=== PATIENT | female | born 1955 | race African-American/Black ===

== ENCOUNTER 2016-07-15 11:36 | Emergency (ER) | payer OTHER ==
[2016-07-15] MEDS ORDERED: Nitroglycerin 2% Ointment 1 INCH/1 GM Packet ONE (12:00)
[2016-07-15 12:19] LABS: #Basophils 0.1 thou/uL (0.0-0.2); #Eosinphils 0.3 thou/uL (0.0-0.7); #Monocytes 0.6 thou/uL (0.11-0.59); #Neutrophils 2.8 thou/uL (1.40-6.50); %Eosinophils 5.7 % (0.0-10.0); %Monocytes 10.1 % (0.0-10.0); Hematocrit 36.2 % (36.0-47.0); Mean Platelet Volume 7.2 fL (7.4-10.4); Red Blood Cell (RBC) Count 3.79 mill/uL (4.20-5.40); White Blood Cell (WBC) Count 5.8 thou/uL (4.8-10.8)
[2016-07-15] MEDS ORDERED: methylPREDNISolone Sod Succ/PF 125 MG/2 ML VIAL ONE (12:35)
[2016-07-15 12:37] LABS: ALT (SGPT) Less than 6 U/L (0-55); AST (SGOT) 13 U/L (5-34); Alkaline Phosphatase 62 U/L (40-150); Anion Gap 12 mmol/L (10-20); BUN (Urea Nitrogen) 15 mg/dL (9.8-20.1); Bilirubin, Total 0.3 mg/dL (0.2-1.2); Calc. Creatinine Clearance 0 mL/min (70-130); Calcium 10.1 mg/dL (7.8-10.44); Carbon Dioxide 20 mmol/L (22-29); Chloride 111 mmol/L (98-107); Estimated GFR-MDRD 48; Globulin 2.6 g/dL (2.4-3.5); Protein, Total 6.4 g/dL (6.0-8.3)
[2016-07-15 12:40] LABS: Troponin I 0.025 ng/mL (< 0.028)
[2016-07-15] MEDS ORDERED: cefTRIAXone\\ROCEPHIN 1 GM VIAL ONE (12:54)
[2016-07-15] MEDS ORDERED: Acetaminophen 500 MG TAB ONE (13:04)
[2016-07-15] MEDS ORDERED: Magnesium Sulfate 2 GM/100 ML BAG ONE (13:33)
--- NOTE | 2016-07-15 14:10 | ERRECORD ---
[facility] EMERGENCY RECORD HPI SHORTNESS OF BREATH (11:57 JPIP) CHIEF COMPLAINT: Patient presents for evaluation of shortness of breath, Patient presents for evaluation of chest pain. HISTORIAN: History provided by patient. LOCATION: Symptoms are generalized. QUALITY: Symptoms described as tightness, Symptoms described as wheezing. SEVERITY: Current severity of pain rated as 9/10. TIME COURSE: Sudden onset of symptoms, Date and time of onset was "awhile", Symptoms are worsening, are constant. ASSOCIATED WITH: Associated with chills, Associated with cough, Associated with chest pain, No associated diarrhea, Associated with dyspnea on exertion, Associated with fever, Measured maximum temperature 102-102.9 degrees, No associated hemoptysis, Associated with increased inhaler use, Associated with palpitations, Associated with paroxysmal nocturnal dyspnea, No associated peripheral edema, Associated with upper respiratory infection, No associated vomiting, Associated with wheezing. EXACERBATED BY: Patient's condition exacerbated by exercise, Patient's condition exacerbated by lying flat. RELIEVED BY: Patient's condition relieved by nothing. RISK FACTORS: Coronary artery disease risk factors, include known coronary artery disease, include hypertension. ROS (11:58 JPIP) CONSTITUTIONAL: Historian reports chills, reports fever. measured temperature of 102, Historian reports malaise. ENT: Historian reports rhinorrhea. CARDIOVASCULAR: Historian reports chest pain, reports dyspnea on exertion, reports orthopnea, reports paroxysmal nocturnal dyspnea. RESPIRATORY: Historian reports cough, reports shortness of breath, reports wheezing. GI: Historian denies diarrhea, reports nausea, denies vomiting. SKIN: Historian denies rash, denies skin changes, denies skin lesions. NEUROLOGIC: Historian denies confusion, denies dizziness, denies lethargy, denies mental status changes, denies paresthesias. NOTES: All systems reviewed, negative except as described above. PAST MEDICAL HISTORY MEDICAL HISTORY: Past medical history includes cardiac history, coronary artery disease, congestive heart failure, arrhythmia, atrial fibrillation, , Past medical history includes history of hyperlipidemia, Notes: FIBROMYALGIA, , Past medical &a-1R&a+25V*p+0X*y1326H*c202B*c15G*c2P*p-0X&a-25V&a+1R Name: Heide Lake Alverto : 1955 F61 MedRec: [id number] AcctNum: [id number] Prepared: Deana Jul 15, 2016 14:08 by Interface Page 1 of 4 pMD [facility] EMERGENCY RECORD history includes cardiac history, carotid plaques, "VALVE LEAK", Past medical history includes history of hypertension, Past medical history includes neurological disease, ischemic cerebral vascular accident 08/2014, Past medical history includes pulmonary disease, chronic obstructive pulmonary disease, Past medical history includes renal disease, insufficiency. Past medical history includes neurological disease, transient ischemic attack. PA 08/2014 and pneumonia- September 2015. Stroke in January. (11:41 KMOR) FEMALE SURGICAL HISTORY: CAROTID ENDARTERECTOMY TO LEFT SIDE., Surgical history of cholecystectomy, Surgical history of tubal ligation. LEEP Surgery, heart cath 2014. (11:41 KMOR) PSYCHIATRIC HISTORY: Psychiatric history includes, bipolar disorder, depression, schizophrenia. (11:41 KMOR) SOCIAL HISTORY: Patient denies alcohol use, Patient denies drug use, Patient currently uses tobacco, smokes cigarettes, Patient smokes 2 per day pack per day. (11:41 KMOR) NOTES: Nursing records reviewed, Medication list reviewed. (12:01 [facility]) KNOWN ALLERGIES Ziac: Source: Patient, - TONGUE SWELLING CURRENT MEDICATIONS No recorded medications VITAL SIGNS VITAL SIGNS: Pulse: 96, Time: 07/15/2016 11:38. (11:38 KMOR) BP: 185/120, Resp: 26, Temp: 97.7 (Oral), Pain: 9, O2 sat: 99 on Room Air, Time: 07/15/2016 11:39. (11:39 KMOR) BP: 168/97, Pulse: 84, Resp: 20, Pain: 9, O2 sat: 98 on Room Air, Time: 07/15/2016 12:15. (12:15 KMOR) BP: 166/105, Pulse: 82, Resp: 16, O2 sat: 98 on 2L Oxygen, Time: 07/15/2016 13:07. (13:07 AHOO) BP: 185/117, Pulse: 81, Resp: 14, Temp: 98.2 (Oral), Pain: 8, O2 sat: 99 on 2L Oxygen, Time: 07/15/2016 13:42. (13:42 AHOO) BP: 175/102, Pulse: 81, Resp: 14, O2 sat: 99 on 2L Oxygen, Time: 07/15/2016 14:00. (14:00 KMOR) PHYSICAL EXAM (11:59 JPIP) CONSTITUTIONAL: Vital Signs Reviewed, Patient afebrile, Pulse normal, Blood pressure, hypertensive, Respiratory rate, increased, Normal pulse oximetry, Patient appears, ill appearing, Patient appears, in mild pain distress, Patient alert and oriented to person, place and time, Nursing notes reviewed. HEAD: Head exam included findings of head atraumatic, normocephalic. EYES: Eye exam included findings of eyelids normal to inspection, Conjunctiva normal, Sclera normal, no periorbital ecchymosis, no periorbital edema, no periorbital erythema. &a-1R&a+25V*p+0X*b3170C*c202B*c15G*c2P*p-0X&a-25V&a+1R Name: Heide Lake : 1955 F61 MedRec: [id number] AcctNum: [id number] Prepared: ThuJul 15, 2016 14:08 by Interface Page 2 of 4 pMD [facility] EMERGENCY RECORD ENT: Pharynx exam normal, not injected, no swelling, symmetrical, Uvula exam normal, midline, no edema, Mouth exam included findings of, mucous membranes tacky. NECK: Neck exam included findings of normal range of motion, Trachea midline, no jugular venous distention, no cervical adenopathy, no tenderness. RESPIRATORY CHEST: Respiratory exam included findings of, moderate respiratory distress, Breath sounds not clear, No wheezing, Rales present, to bilateral upper lobes, to bilateral lower lobes, Breath sounds diminished, to bilateral upper lobes, to bilateral lower lobes. CARDIOVASCULAR: Cardiovascular exam included findings of heart rate regular rate and rhythm, Heart sounds normal, no rub. ABDOMEN FEMALE: Abdominal exam included findings of abdomen nontender, Liver normal, Spleen normal, no distension, no mass, no pulsatile masses, no peritoneal signs, no rigidity, no guarding, no rebound. BACK: no costovertebral angle tenderness. LOWER EXTREMITY: no edema. NEURO: Waterflow coma scale 15, Neuro exam findings include patient oriented to person, place and time, Speech, forced, short 1-2 word sentences, no focal motor deficits. SKIN: Skin exam included findings of skin warm, dry, and normal in color. LYMPHATIC: Lymphatic exam included findings of cervical nodes normal, Submandibular normal. PSYCHIATRIC: Normal affect. MEDICATION ADMINISTRATION SUMMARY Drug Name: magnesium sulfate in water, Dose Ordered: 2 g, Route: IV Piggy Back, Status: Given, Time: 13:39 07/15/2016, Drug Name: Tylenol Extra Strength, Dose Ordered: 1000 mg, Route: Oral, Status: Given, Time: 13:06 07/15/2016, Drug Name: Rocephin injection, Dose Ordered: 2 g, Route: IV Piggy Back, Status: Given, Time: 13:02 07/15/2016, Drug Name: Solu-MEDROL injection, Dose Ordered: 125 mg, Route: IV Push, Status: Given, Time: 12:38 07/15/2016, Drug Name: Normal Saline, Dose Ordered: 100 mL/hr, Route: IV Fluid Infusion, Status: Given, Time: 12:08 07/15/2016, Drug Name: DuoNeb, Dose Ordered: 3 mL, Route: Nebulize, Status: Given, Time: 12:02 07/15/2016, Drug Name: Nitro-Bid transdermal, Dose Ordered: 1 inch, Route: Topical, Status: Given, Time: 12:00 07/15/2016, Detailed record available in Medication Service section. DOCTOR NOTES (12:23 JPIP) RE-EVALUATION: Routine re-evaluation, after administration of bronchodilator nebulizer treatments, Routine re-evaluation, after &a-1R&a+25V*p+0X*e5046B*c202B*c15G*c2P*p-0X&a-25V&a+1R Name: Heide Lake Alverto : 1955 F61 MedRec: [id number] AcctNum: [id number] Prepared: ThuJul 15, 2016 14:08 by Interface Page 3 of 4 pMD [facility] EMERGENCY RECORD administration of, nitroglycerin paste, The patient's condition has improved, able to speak full sentences, markedly decreased distress. Talking on her phone. PROBLEM LIST No recorded problems DIAGNOSIS (13:45 JPIP) FINAL: PRIMARY: COPD WITH ACUTE EXACERBATION, ADDITIONAL: uncontrolled hypertension. PRESCRIPTION No recorded prescriptions DISPOSITION PATIENT: Disposition Type: Transfer, Disposition: Transfer to [facility], Disposition Transport: Ambulance, Condition: Improved. (13:45 JPIP) Patient left the department. (14:02 KMOR) Dailey: AHOO=JIGNA Cha, September JPIP=DO [place] Joseph KMOR=CALLY Marinelli, Oriana &a-1R&a+25V*p+0X*s7402F*c202B*c15G*c2P*p-0X&a-25V&a+1R Name: Heide Lake : 1955 F61 MedRec: [id number] AcctNum: [id number] Prepared: Deana Jul 15, 2016 14:08 by Interface Page 4 of 4 pMD MTDD
--- NOTE | 2016-07-15 14:10 | PICIS ---
[facility] EMERGENCY RECORD COMMUNICATIONS (13:44 JPIP) COMMUNICATIONS: Physician, contacted/paged at [phone], Reason for notification transfer and admission, Dr Mcdonough accepts. TRIAGE (ThuJul 15, 2016 11:38 KMOR) TRIAGE NOTES: increased sob, cough and fever or a few days. (ThuJul 15, 2016 11:38 KMOR) PATIENT: NAME: Heide Lake, AGE: 61, GENDER: female, : Sat 1955, TIME OF GREET: ThuJul 15, 2016 11:37, PREFERRED LANGUAGE: Barbadian, ETHNICITY: Not or , ECODE BILLING MAP: [place], SSN: [id number], Zip Code: [address], KG WEIGHT: 68.04, PHONE: , , , PERSON ID: [id number], PAYMENT: X Medicaid, PCP: Vivian SANCHEZ. (ThuJul 15, 2016 11:38 KMOR) COMPLAINT: Shortness of Breath. (11:43 KMOR) ADMISSION: URGENCY: 3 Urgent, ADMISSION SOURCE: Home, TRANSPORT: CAR, BED: ER -02. (ThuJul 15, 2016 11:38 KMOR) ASSESSMENT: Assessment: A&OX4. RR EVEN TACHY, Symptoms began 3 days ago. (11:41 KMOR) PAIN: Patient complains of pain described as, aching, on a scale 0-10 patient rates pain as 9, Location CHEST. (11:41 KMOR) IMMUNIZATIONS: Flu vaccine up to date, Tetanus immunization up to date, Pneumococcal vaccine up to date. (11:41 KMOR) SIRS SCORING: Heart Rate 55-109 (0), Temp range 96.8-101.1 (0), respiratory rate 12-24 (0), Mental Status altered: no (0), Yes, Infection or Suspected Infection. (11:41 KMOR) TRIAGE SCREENING: Patient denies suicidal ideation, Patient denies presence of domestic violence. (11:41 KMOR) LMP: LMP: Hysterectomy. (11:41 KMOR) PROVIDERS: TRIAGE NURSE: Oriana Marinelli RN. (ThuJul 15, 2016 11:38 KMOR) VITAL SIGNS: Pulse 96, Time 07/15/2016 11:38. (11:38 KMOR) BP 185/120, Resp 26, Temp 97.7, (Oral), Pain 9, O2 Sat 99, on Room Air, Time 07/15/2016 11:39. (11:39 KMOR) PREVIOUS VISIT ALLERGIES: Ziac. (ThuJul 15, 2016 11:38 KMOR) Ziac. (11:41 KMOR) KNOWN ALLERGIES Ziac: Source: Patient, - TONGUE SWELLING CURRENT MEDICATIONS No recorded medications VITAL SIGNS VITAL SIGNS: Pulse: 96, Time: 07/15/2016 11:38. (11:38 KMOR) BP: 185/120, Resp: 26, Temp: 97.7 (Oral), Pain: 9, O2 sat: 99 on Room Air, Time: 07/15/2016 11:39. (11:39 KMOR) BP: 168/97, Pulse: 84, Resp: 20, Pain: 9, O2 sat: 98 on Room Air, Time: 07/15/2016 12:15. (12:15 KMOR) &a-1R&a+25V*p+0X*w5861D*c202B*c15G*c2P*p-0X&a-25V&a+1R Name: Heide Lake : 1955 F61 MedRec: [id number] AcctNum: [id number] Prepared: ThuJul 15, 2016 14:08 by Interface Page 1 of 14 pMD [facility] EMERGENCY RECORD BP: 166/105, Pulse: 82, Resp: 16, O2 sat: 98 on 2L Oxygen, Time: 07/15/2016 13:07. (13:07 AHOO) BP: 185/117, Pulse: 81, Resp: 14, Temp: 98.2 (Oral), Pain: 8, O2 sat: 99 on 2L Oxygen, Time: 07/15/2016 13:42. (13:42 AHOO) BP: 175/102, Pulse: 81, Resp: 14, O2 sat: 99 on 2L Oxygen, Time: 07/15/2016 14:00. (14:00 KMOR) NURSING ASSESSMENT: CARDIOVASCULAR (12:29 KMOR) CONSTITUTIONAL: Patient arrives ambulatory, Gait steady, History obtained from patient, Patient appears, in respiratory distress, Patient cooperative, Patient alert, Oriented to person, place and time, Skin warm, Skin dry, Skin normal in color, Mucous membranes pink, Mucous membranes, tacky, Patient is well-groomed, Patient complains of Shortness of breath, Patient reports increased shortness of breath, cough and congestion x 3 days. Reports possible fever. PAIN: aching pain, to the left chest, on a scale 0-10 patient rates pain as 9, Pain exacerbated by, coughing. CARDIOVASCULAR: Cardiovascular assessment findings include heart rate normal, Heart rhythm normal sinus, Heart sounds normal, S1, S2, Left radial pulse +3(easily palpated, considered normal), Right radial pulse +3(easily palpated, considered normal), Associated with dyspnea, with exertion, when lying flat (orthopnea). RESPIRATORY/CHEST: Lungs auscultated, Breath sounds diminished, to bilateral upper lobes, to bilateral lower lobes, Respiratory assessment findings include respiratory effort, labored, rapid, Respirations regular, Converses, in short phrases, Neck and chest exam findings include trachea midline, Chest expansion equal, Chest movement symmetrical, Signs of distress, tripod positioning, in moderate distress, Retractions, intercostal, sternal, Associated with cough, loose, productive of, green sputum, Associated with fever. NOTES: Patient tolerated procedure well. NURSING ASSESSMENT: FALL RISK (12:31 KMOR) FALL RISK: Fall risk assessment findings include: no history of falls (0), No bed rest greater than 2 days (0), No use of level of consciousness altering agents with mentation or cognitive changes (0), No change in blood pressure (0), No sensory deficits (0), No impaired mobility (0), No neurologic diagnosis (0), No elimination problems (0), No confusion (0), Total score 0. NURSING ASSESSMENT: SKIN (12:31 KMOR) SKIN: Skin assessment findings include skin warm, Skin dry, Skin normal in color, Inspection findings include: No pressure ulcer to the shoulder, Inspection findings include no pressure ulcer to the &a-1R&a+25V*p+0X*j3143L*c202B*c15G*c2P*p-0X&a-25V&a+1R Name: Heide Lake : 1955 F61 MedRec: [id number] AcctNum: [id number] Prepared: ThuJul 15, 2016 14:08 by Interface Page 2 of 14 pMD [facility] EMERGENCY RECORD elbow, Inspection findings include no pressure ulcers to the hip, Inspection findings include no pressure ulcer to the sacrum, Inspection findings include no pressure ulcer to the heel, Inspection findings include no pressure ulcer, Inspection findings include no pressure ulcer. JAE SCALE: (4) Sensory perception has no impairment, (3) Skin is occasionally moist, (3) Patient walks occasionally, (3) Slightly limited mobility, (3) Adequate nutrition, (3) Patient has no apparent problem moving, Jae Risk Total: 19. NURSING PROCEDURE: REFRIGERATION INSULATOR (12:00 KMOR) PATIENT IDENTIFIER: Patient actively involved in identification process, Patient's identity verified by patient stating name, Patient's identity verified by patient stating date. REFRIGERATION INSULATOR: Cardiac monitoring indicated for complaint of chest pain, Patient placed on head of mathematics, Heart rate: 84, showing normal sinus rhythm, Patient placed on non-invasive blood pressure monitor, with disposable blood pressure cuff applied, Patient placed on continuous pulse oximetry, Adult/pediatric oxisensor applied, Oxygen saturation 99%. NOTES: Patient tolerated procedure well. NURSING PROCEDURE: EKG CHART (11:45 AHOO) PATIENT IDENTIFIER: Patient actively involved in identification process, Patient's identity verified by patient stating name, Patient's identity verified by patient stating date, Patient's identity verified by hospital ID bracelet. EKG: EKG indicated for WEAKNESS, 12 lead EKG performed on the left chest, done by BABITA BLEDSOE LVN, first EKG. FOLLOW-UP: After procedure, EKG for interpretation given to Dr. DR LAGOS. NURSING PROCEDURE: IV (12:00 KMOR) PATIENT IDENITIFIER: Patient actively involved in identification process, Patient's identity verified by patient stating name, Patient's identity verified by patient stating date. IV SITE 1: IV therapy indicated for hydration, IV therapy indicated for medication administration, IV established, to the left antecubital, using an 18 gauge catheter, in one attempt, Saline lock established, Flushed with normal saline (mls): 10, Labs drawn at time of placement, labeled in the presence of the patient and sent to lab, Blood cultures drawn at time of placement, labeled in the presence of the patient and sent to lab. FOLLOW-UP SITE 1: After procedure, sterile dressing applied, After procedure, no drainage at IV site, After procedure, no swelling at IV site, After procedure, no redness at IV site. NOTES: Patient tolerated procedure well. NURSING PROCEDURE: RESPIRATORY INTERVENTIONS (12:05 AHOO) &a-1R&a+25V*p+0X*o0488E*c202B*c15G*c2P*p-0X&a-25V&a+1R Name: Heide Lake : 1955 F61 MedRec: [id number] AcctNum: [id number] Prepared: Deana Jul 15, 2016 14:08 by Interface Page 3 of 14 D [facility] EMERGENCY RECORD PATIENT IDENTIFIER: Patient actively involved in identification process, Patient's identity verified by patient stating name, Patient's identity verified by patient stating date, Patient's identity verified by hospital ID bracelet. RESPIRATORY INTERVENTIONS: Respiratory interventions indicated for wheezing, Pre-intervention oxygen saturation 99%, by adult/pediatric oxisensor, single pulse oximetry reading, GAVE PT DUO NEB TX PER MD ORDERS. NURSING PROCEDURE: TRANSFER TRANSFER: Reason for transfer need for specialized care, Diagnosis: COPD EXACERBATION, [facility], Accepting physician: SNEHA, Referring physician: JES, Transported by urgent ambulance, accompanied by emergency medical services personnel, Summary of Care printed, Copy of patient record prepared for receiving facility, Copy of diagnostic studies, Status of patient's valuables documented on chart, Medication reconciliation form prepared and sent to receiving facility, Patient consent for transfer signed. (13:58 KMOR) BELONGINGS: Notes: BELONGINGS BAG AND CANE TRANSFERED WITH PATIENT TO [place]. (14:01 KMOR) EQUIPMENT WITH PATIENT: Equipment with patient at time of transfer head of mathematics, Equipment with patient at time of transfer IV pump, Saline lock intact and patent at time of transfer. (14:02 KMOR) ORDER DETAILS Order Name: B type Natriuretic Peptide, Status: Active, Time: 11:50 07/15/2016, User: SUMIT, - Ordered for: DO Lagos Joseph, - Entered by: DO Lagos Joseph - ThuJul 15, 2016 11:50, - Quantity: 1, Order Name: REFRIGERATION INSULATOR ED, Status: Done, Time: 11:55 07/15/2016, User: KB, - Ordered for: DO Lagos Joseph, - Entered by: DO Lagos Joseph - ThuJul 15, 2016 11:50, - Quantity: 1, Order Name: Cardiac Profile w/CKMB & Troponin - I, Status: Active, Time: 11:50 07/15/2016, User: SUMIT, - Ordered for: DO Lagos Joseph, - Entered by: DO Lagos Joseph - ThuJul 15, 2016 11:50, - Quantity: 1, Order Name: CBC with Differential, Status: Active, Time: 11:50 07/15/2016, User: SUMIT, - Ordered for: DO Lagos Joseph, - Entered by: DO Lagos Joseph - ThuJul 15, 2016 11:50, - Quantity: 1, Order Name: Comprehensive Metabolic Panel, Status: Active, Time: 11:50 07/15/2016, User: SUMIT, &a-1R&a+25V*p+0X*p8097M*c202B*c15G*c2P*p-0X&a-25V&a+1R Name: Heide Lake : 1955 F61 MedRec: [id number] AcctNum: [id number] Prepared: ThuJul 15, 2016 14:08 by Interface Page 4 of 14 D [facility] EMERGENCY RECORD - Ordered for: DO Lagos Joseph, - Entered by: DO Lagos Joseph - ThuJul 15, 2016 11:50, - Quantity: 1, Order Name: Culture & GS, Respiratory, Status: Active, Time: 12:18 07/15/2016, User: SUMIT, - Ordered for: DO Lagos Joseph, - Entered by: DO Lagos Joseph - ThuJul 15, 2016 12:18, - Quantity: 1, Order Name: Culture, Blood, Status: Active, Time: 11:50 07/15/2016, User: SUMIT, - Ordered for: DO Lagos Joseph, - Entered by: DO Lagos Joseph - ThuJul 15, 2016 11:50, - Quantity: 1, Order Name: Culture, Urine, Status: Active, Time: 11:50 07/15/2016, User: SUMIT, - Ordered for: DO Lagos Joseph, - Entered by: DO Lagos Joseph - theo Jul 15, 2016 11:50, - Quantity: 1, Order Name: EKG 12 Lead in Emergency Room, Status: Active, Time: 11:50 07/15/2016, User: SUMIT, - Ordered for: DO Lagos Joseph, - Entered by: DO Lagos Joseph - theo Jul 15, 2016 11:50, - Quantity: 1, Order Name: ERRT * Smal Vol Neb Initial Trmt, Status: Active, Time: 11:55 07/15/2016, User: SUMIT, - Ordered for: DO Lagos Joseph, - Entered by: DO Lagos Joseph - theo Jul 15, 2016 11:55, - Quantity: 1, Order Name: ERRT Oxygen Usage ER, Status: Active, Time: 11:50 07/15/2016, User: SUMIT, - Ordered for: DO Lagos Joseph, - Entered by: DO Lagos Joseph ThuJul 15, 2016 11:50, - Quantity: 1, Order Name: ERRT Pulse Oximeter ER, Status: Active, Time: 11:50 07/15/2016, User: SUMIT, - Ordered for: DO Lagos Joseph, - Entered by: DO Lagos Joseph - ThuJul 15, 2016 11:50, - Quantity: 1, Order Name: Influenza A&B Ag Screen, Status: Active, Time: 11:50 07/15/2016, User: SUMIT, - Ordered for: DO Lagos Joseph, - Entered by: DO Lagos Joseph - theo Jul 15, 2016 11:50, - Quantity: 1, Order Name: Lactic Acid with repeat, Status: Active, Time: 11:52 07/15/2016, User: SUMIT, - Ordered for: DO Lagos Joseph, - Entered by: DO Lagos Joseph - theo Jul 15, 2016 11:52, - Quantity: 1, Order Name: SALINE LOCK, Status: Done, Time: 12:23 07/15/2016, User: ROSENDO, &a-1R&a+25V*p+0X*p7198S*c202B*c15G*c2P*p-0X&a-25V&a+1R Name: Heide Lake : 1955 F61 MedRec: [id number] AcctNum: [id number] Prepared: ThuJul 15, 2016 14:08 by Interface Page 5 of 14 pMD [facility] EMERGENCY RECORD - Ordered for: DO Lagos Joseph, - Entered by: DO Lagos Joseph - ThuJul 15, 2016 11:50, - Quantity: 1, Order Name: Urinalysis w/ Rflx Microscopic, Status: Active, Time: 11:50 07/15/2016, User: SUMIT, - Ordered for: DO Lagos Joseph, - Entered by: DO Lagos Joseph - theo Jul 15, 2016 11:50, - Quantity: 1, Order Name: XR Chest 1 View Portable, Status: Active, Time: 11:56 07/15/2016, User: SUMIT, - Ordered for: DO Lagos Joseph, - Entered by: DO Lagos Joseph - theo Jul 15, 2016 11:56, - Quantity: 1. MEDICATION ADMINISTRATION SUMMARY Drug Name: magnesium sulfate in water, Dose Ordered: 2 g, Route: IV Piggy Back, Status: Given, Time: 13:39 07/15/2016, Drug Name: Tylenol Extra Strength, Dose Ordered: 1000 mg, Route: Oral, Status: Given, Time: 13:06 07/15/2016, Drug Name: Rocephin injection, Dose Ordered: 2 g, Route: IV Piggy Back, Status: Given, Time: 13:02 07/15/2016, Drug Name: Solu-MEDROL injection, Dose Ordered: 125 mg, Route: IV Push, Status: Given, Time: 12:38 07/15/2016, Drug Name: Normal Saline, Dose Ordered: 100 mL/hr, Route: IV Fluid Infusion, Status: Given, Time: 12:08 07/15/2016, Drug Name: DuoNeb, Dose Ordered: 3 mL, Route: Nebulize, Status: Given, Time: 12:02 07/15/2016, Drug Name: Nitro-Bid transdermal, Dose Ordered: 1 inch, Route: Topical, Status: Given, Time: 12:00 07/15/2016, Detailed record available in Medication Service section. MEDICATION SERVICE DuoNeb: Order: DuoNeb (ipratropium bromide/albuterol sulfate) - Dose: 3 mL : Nebulize Schedule: Now Ordered by: Stanley Lagos DO Entered by: Stanley Lagos DO ThuJul 15, 2016 11:55 , Acknowledged by: Baibta Bledsoe LVN ThuJul 15, 2016 11:57 Documented as given by: Babita Bledsoe LVN ThuJul 15, 2016 12:02 Patient, Medication, Dose, Route and Time verified prior to administration. Amount given: 3 ML, Correct patient, time, route, dose and medication confirmed prior to administration, Patient advised of actions and side-effects prior to administration, Allergies confirmed and medications reviewed prior to administration, Patient in position of comfort, Side rails up, Cart in lowest position, Family at bedside. magnesium sulfate in water: Order: magnesium sulfate in water (magnesium sulfate/water for injection,sterile) - Dose: 2 g &a-1R&a+25V*p+0X*u4725B*c202B*c15G*c2P*p-0X&a-25V&a+1R Name: Heide Lake : 1955 F61 MedRec: [id number] AcctNum: [id number] Prepared: ThuJul 15, 2016 14:08 by Interface Page 6 of 14 pMD [facility] EMERGENCY RECORD : IV Piggy Back Schedule: Now Ordered by: Stanley Lagos DO Entered by: Stanley Lagos DO ThuJul 15, 2016 13:29 , Acknowledged by: Oriana Marinelli RN ThuJul 15, 2016 13:30 Documented as given by: Babita Bledsoe LVN ThuJul 15, 2016 13:39 Patient, Medication, Dose, Route and Time verified prior to administration. Amount given: 2G, IV SITE #1 IVPB or drip, concurrent infusion, Catheter placement confirmed via flush prior to administration, IV site without signs or symptoms of infiltration during medication administration, No swelling during administration, No drainage during administration, IV flushed after administration, Correct patient, time, route, dose and medication confirmed prior to administration, Patient advised of actions and side-effects prior to administration, Allergies confirmed and medications reviewed prior to administration, Patient in position of comfort, Side rails up, Cart in lowest position, Family at bedside. : Follow Up : Response assessment performed, No signs or symptoms of allergic reaction noted, _IV SITE #1:_, Medication infusion continued upon transfer from emergency department, on ThuJul 15, 2016 14:02, 25 minutes, ., Total amount infused: 40ML. (14:02 KMOR) Nitro-Bid transdermal: Order: Nitro-Bid transdermal (nitroglycerin) - Dose: 1 inch : Topical Schedule: Now Ordered by: Stanley Lagos DO Entered by: Stanley Lagos DO ThuJul 15, 2016 11:51 , Acknowledged by: Babita Bledsoe LVN ThuJul 15, 2016 11:57 Documented as given by: Babita Bledsoe LVN theo Jul 15, 2016 12:00 Patient, Medication, Dose, Route and Time verified prior to administration. Medication applied transdermally topically, Amount given: 1 INCH, Skin cleansed prior to administration, Correct patient, time, route, dose and medication confirmed prior to administration, Patient advised of actions and side-effects prior to administration, Allergies confirmed and medications reviewed prior to administration, PT BP WAS 183/107. Normal Saline: Order: Normal Saline (0.9 % sodium chloride) - Dose: 100 mL/hr : IV Fluid Infusion Ordered by: Stanley Lagos DO Entered by: Stanley Lagos DO ThuJul 15, 2016 11:51 Documented as given by: Babita Bledsoe LVN theo Jul 15, 2016 12:08 Patient, Medication, Dose, Route and Time verified prior to administration. Amount given: 100ML/HR, IV SITE #1 IV fluids established for hydration, IV SITE #1 into left antecubital, IV SITE #1 1st bag hung, IV SITE #1 Rate of infusion (non-bolus) Infusing at 100 ml/hr, via primary tubing, Awake and alert- acceptable, Catheter placement confirmed via flush prior to administration, IV site without signs or &a-1R&a+25V*p+0X*b3015U*c202B*c15G*c2P*p-0X&a-25V&a+1R Name: Heide Lake : 1955 F61 MedRec: [id number] AcctNum: [id number] Prepared: ThuJul 15, 2016 14:08 by Interface Page 7 of 14 pMD [facility] EMERGENCY RECORD symptoms of infiltration during medication administration, No swelling during administration, No drainage during administration, IV flushed after administration, Correct patient, time, route, dose and medication confirmed prior to administration, Patient advised of actions and side-effects prior to administration, Allergies confirmed and medications reviewed prior to administration, Patient in position of comfort, Side rails up, Cart in lowest position, Family at bedside. Rocephin injection: Order: Rocephin injection (ceftriaxone sodium) - Dose: 2 g : IV Piggy Back Schedule: Now Ordered by: Stanley Lagos DO Entered by: Stanley Lagos DO ThuJul 15, 2016 12:47 , Acknowledged by: Babita Bledsoe LVN ThuJul 15, 2016 12:49 Documented as given by: Babita Bledsoe LVN ThuJul 15, 2016 13:02 Patient, Medication, Dose, Route and Time verified prior to administration. Amount given: 2 GRAMS, IV SITE #1 IVPB or drip, initial infusion, Verified Blood Culture collection prior to Antibiotic administration, Catheter placement confirmed via flush prior to administration, IV site without signs or symptoms of infiltration during medication administration, No swelling during administration, No drainage during administration, IV flushed after administration, Correct patient, time, route, dose and medication confirmed prior to administration, Patient advised of actions and side-effects prior to administration, Allergies confirmed and medications reviewed prior to administration, Patient in position of comfort, Side rails up, Cart in lowest position, Family at bedside. : Follow Up : Response assessment performed, No signs or symptoms of allergic reaction noted, _IV SITE #1:_, Medication infusion discontinued, on ThuJul 15, 2016 13:33, 35 minutes, ., Total amount infused: 200ML, IV Line flushed after administration. (13:33 OO) Solu-MEDROL injection: Order: Solu-MEDROL injection (methylprednisolone sod succ) - Dose: 125 mg : IV Push Ordered by: Stanley Lagos DO Entered by: Stanley Lagos DO ThuJul 15, 2016 12:29 , Acknowledged by: Babita Bledsoe LVN ThuJul 15, 2016 12:30 Documented as given by: Babita Bledsoe LVN ThuJul 15, 2016 12:38 Patient, Medication, Dose, Route and Time verified prior to administration. Amount given: 125MG, IV SITE #1 IVP, initial medication, Slowly, Awake and alert- acceptable, Catheter placement confirmed via flush prior to administration, IV site without signs or symptoms of infiltration during medication administration, No swelling during administration, No drainage during administration, IV flushed after administration, Correct patient, time, route, dose and medication confirmed prior to administration, Patient advised of actions and side-effects prior to administration, Allergies confirmed and medications reviewed prior to administration, Patient in position of &a-1R&a+25V*p+0X*r5125J*c202B*c15G*c2P*p-0X&a-25V&a+1R Name: Hiede Lake : 1955 F61 MedRec: [id number] AcctNum: [id number] Prepared: ThuJul 15, 2016 14:08 by Interface Page 8 of 14 pMD [facility] EMERGENCY RECORD comfort, Side rails up, Cart in lowest position, Family at bedside. Tylenol Extra Strength: Order: Tylenol Extra Strength (acetaminophen) - Dose: 1000 mg : Oral Schedule: Now Ordered by: Stanley Lagos DO Entered by: Stanley Lagos DO ThuJul 15, 2016 13:00 , Acknowledged by: Babita Bledsoe LVN theo Jul 15, 2016 13:03 Documented as given by: Babita Bledsoe LVN theo Jul 15, 2016 13:06 Patient, Medication, Dose, Route and Time verified prior to administration. Amount given: 1000MG, Correct patient, time, route, dose and medication confirmed prior to administration, Patient advised of actions and side-effects prior to administration, Allergies confirmed and medications reviewed prior to administration, Patient in position of comfort, Side rails up, Cart in lowest position, Family at bedside. HPI SHORTNESS OF BREATH (11:57 JPIP) CHIEF COMPLAINT: Patient presents for evaluation of shortness of breath, Patient presents for evaluation of chest pain. HISTORIAN: History provided by patient. LOCATION: Symptoms are generalized. QUALITY: Symptoms described as tightness, Symptoms described as wheezing. SEVERITY: Current severity of pain rated as 9/10. TIME COURSE: Sudden onset of symptoms, Date and time of onset was "awhile", Symptoms are worsening, are constant. ASSOCIATED WITH: Associated with chills, Associated with cough, Associated with chest pain, No associated diarrhea, Associated with dyspnea on exertion, Associated with fever, Measured maximum temperature 102-102.9 degrees, No associated hemoptysis, Associated with increased inhaler use, Associated with palpitations, Associated with paroxysmal nocturnal dyspnea, No associated peripheral edema, Associated with upper respiratory infection, No associated vomiting, Associated with wheezing. EXACERBATED BY: Patient's condition exacerbated by exercise, Patient's condition exacerbated by lying flat. RELIEVED BY: Patient's condition relieved by nothing. RISK FACTORS: Coronary artery disease risk factors, include known coronary artery disease, include hypertension. ROS (11:58 JPIP) CONSTITUTIONAL: Historian reports chills, reports fever. measured temperature of 102, Historian reports malaise. ENT: Historian reports rhinorrhea. CARDIOVASCULAR: Historian reports chest pain, &a-1R&a+25V*p+0X*e9348O*c202B*c15G*c2P*p-0X&a-25V&a+1R Name: Heide Lake : 1955 F61 MedRec: [id number] AcctNum: [id number] Prepared: ThuJul 15, 2016 14:08 by Interface Page 9 of 14 pMD [facility] EMERGENCY RECORD reports dyspnea on exertion, reports orthopnea, reports paroxysmal nocturnal dyspnea. RESPIRATORY: Historian reports cough, reports shortness of breath, reports wheezing. GI: Historian denies diarrhea, reports nausea, denies vomiting. SKIN: Historian denies rash, denies skin changes, denies skin lesions. NEUROLOGIC: Historian denies confusion, denies dizziness, denies lethargy, denies mental status changes, denies paresthesias. NOTES: All systems reviewed, negative except as described above. PAST MEDICAL HISTORY MEDICAL HISTORY: Past medical history includes cardiac history, coronary artery disease, congestive heart failure, arrhythmia, atrial fibrillation, , Past medical history includes history of hyperlipidemia, Notes: FIBROMYALGIA, , Past medical history includes cardiac history, carotid plaques, "VALVE LEAK", Past medical history includes history of hypertension, Past medical history includes neurological disease, ischemic cerebral vascular accident 08/2014, Past medical history includes pulmonary disease, chronic obstructive pulmonary disease, Past medical history includes renal disease, insufficiency. Past medical history includes neurological disease, transient ischemic attack. ID 08/2014 and pneumonia- September 2015. Stroke in January. (11:41 KMOR) FEMALE SURGICAL HISTORY: CAROTID ENDARTERECTOMY TO LEFT SIDE., Surgical history of cholecystectomy, Surgical history of tubal ligation. LEEP Surgery, heart cath 2014. (11:41 KMOR) PSYCHIATRIC HISTORY: Psychiatric history includes, bipolar disorder, depression, schizophrenia. (11:41 KMOR) SOCIAL HISTORY: Patient denies alcohol use, Patient denies drug use, Patient currently uses tobacco, smokes cigarettes, Patient smokes 2 per day pack per day. (11:41 KMOR) NOTES: Nursing records reviewed, Medication list reviewed. (12:01 JPIP) PHYSICAL EXAM (11:59 JPIP) CONSTITUTIONAL: Vital Signs Reviewed, Patient afebrile, Pulse normal, Blood pressure, hypertensive, Respiratory rate, increased, Normal pulse oximetry, Patient appears, ill appearing, Patient appears, in mild pain distress, Patient alert and oriented to person, place and time, Nursing notes reviewed. HEAD: Head exam included findings of head atraumatic, normocephalic. EYES: Eye exam included findings of eyelids normal to inspection, Conjunctiva normal, Sclera normal, no periorbital ecchymosis, no periorbital edema, no periorbital erythema. ENT: Pharynx exam normal, not injected, no swelling, symmetrical, Uvula exam normal, midline, no edema, Mouth exam included findings &a-1R&a+25V*p+0X*a1802G*c202B*c15G*c2P*p-0X&a-25V&a+1R Name: Heide Lake : 1955 F61 MedRec: [id number] AcctNum: [id number] Prepared: ThuJul 15, 2016 14:08 by Interface Page 10 of 14 pMD [facility] EMERGENCY RECORD of, mucous membranes tacky. NECK: Neck exam included findings of normal range of motion, Trachea midline, no jugular venous distention, no cervical adenopathy, no tenderness. RESPIRATORY CHEST: Respiratory exam included findings of, moderate respiratory distress, Breath sounds not clear, No wheezing, Rales present, to bilateral upper lobes, to bilateral lower lobes, Breath sounds diminished, to bilateral upper lobes, to bilateral lower lobes. CARDIOVASCULAR: Cardiovascular exam included findings of heart rate regular rate and rhythm, Heart sounds normal, no rub. ABDOMEN FEMALE: Abdominal exam included findings of abdomen nontender, Liver normal, Spleen normal, no distension, no mass, no pulsatile masses, no peritoneal signs, no rigidity, no guarding, no rebound. BACK: no costovertebral angle tenderness. LOWER EXTREMITY: no edema. NEURO: [place] coma scale 15, Neuro exam findings include patient oriented to person, place and time, Speech, forced, short 1-2 word sentences, no focal motor deficits. SKIN: Skin exam included findings of skin warm, dry, and normal in color. LYMPHATIC: Lymphatic exam included findings of cervical nodes normal, Submandibular normal. PSYCHIATRIC: Normal affect. LAB INTERPRETATION (13:06 JPIP) INTERPRETATION: I reviewed the lab results, All labs normal except as noted below, CBC abnormal, Hemoglobin decreased, Hematocrit decreased, Chemistry abnormal, Chloride elevated, Bicarbonate decreased, Cardiac enzymes abnormal, CK-MB normal, Troponin normal, BNP elevated, 141, Liver functions normal, Lactate normal. EVENTS TRANSFER: Triage to Emergency Emergency Room -02. (ThuJul 15, 2016 11:38 KMOR) Removed from Emergency Emergency Room -02. (14:02 KMOR) O2SAT INTERPRETATION (11:50 JPIP) O2SAT: Continuous pulse oximetry, Oxygen saturation 99%, on room air, Oxygen saturation interpretation: Normal, No intervention required. DOCTOR NOTES (12:23 JPIP) RE-EVALUATION: Routine re-evaluation, after administration of bronchodilator nebulizer treatments, Routine re-evaluation, after administration of, nitroglycerin paste, The patient's condition has &a-1R&a+25V*p+0X*u4052E*c202B*c15G*c2P*p-0X&a-25V&a+1R Name: Heide Lake : 1955 F61 MedRec: [id number] AcctNum: [id number] Prepared: ThuJul 15, 2016 14:08 by Interface Page 11 of 14 pMD [facility] EMERGENCY RECORD improved, able to speak full sentences, markedly decreased distress. Talking on her phone. PROBLEM LIST No recorded problems DIAGNOSIS (13:45 JPIP) FINAL: PRIMARY: COPD WITH ACUTE EXACERBATION, ADDITIONAL: uncontrolled hypertension. DISPOSITION PATIENT: Disposition Type: Transfer, Disposition: Transfer to [facility], Disposition Transport: Ambulance, Condition: Improved. (13:45 JPIP) Patient left the department. (14:02 KMOR) PRESCRIPTION No recorded prescriptions IMAGING (12:46 KMOR) *EKG: Image captured from scanner. RESULTS LABORATORY: CBC with Differential Collection DT: ThuJul 15, 2016 12:08, White Blood Cell (WBC) Count 5.8 thou/uL, Range (4.8-10.8), *Red Blood Cell (RBC) Count 3.79 - L mill/uL, Range (4.20-5.40), *Hemoglobin 11.9 - L g/dL, Range (12.0-16.0), Hematocrit 36.2 %, Range (36.0-47.0), Mean Corpuscular Volume 95.4 fl, Range (81.0-99.0), *Mean Corpuscular Hemoglobin 31.3 - H pg, Range (27.0-31.0), Mean Corpuscular HGB CONC 32.8 g/dL, Range (32.0-36.0), RBC Distribution Width 12.9 %, Range (11.5-14.5), Platelet Count 212 thou/uL, Range (130-400), *Mean Platelet Volume 7.2 - L fL, Range (7.4-10.4), %Neutrophils 48.0 %, Range (42.0-75.0), %Lymphocytes 34.3 %, Range (21.0-51.0), *%Monocytes 10.1 - H %, Range (0.0-10.0), %Eosinophils 5.7 %, Range (0.0-10.0), *%Basophils 2.0 - H %, Range (0.0-1.0), #Neutrophils 2.8 thou/uL, Range (1.40-6.50), #Lymphocytes 2.0 thou/uL, Range (1.20-3.40), *#Monocytes 0.6 - H thou/uL, Range (0.11-0.59), #Eosinphils 0.3 thou/uL, Range (0.0-0.7), #Basophils 0.1 thou/uL, Range (0.0-0.2). (12:24 JPIP) Lactic Acid for Sepsis Collection DT: ThuJul 15, 2016 12:08, Lactic Acid - Sepsis 1.0 mmol/L, Range (0.5-2.2). (12:39 JPIP) Comprehensive Metabolic Panel Collection DT: ThuJul 15, 2016 12:08, Sodium 139 mmol/L, Range (136-145), &a-1R&a+25V*p+0X*v2257P*c202B*c15G*c2P*p-0X&a-25V&a+1R Name: Heide Lake : 1955 F61 MedRec: [id number] AcctNum: [id number] Prepared: ThuJul 15, 2016 14:08 by Interface Page 12 of 14 pMD [facility] EM[facility]Y RECORD Potassium 4.2 mmol/L, Range (3.5-5.1), *Chloride 111 - H mmol/L, Range (98-107), *Carbon Dioxide 20 - L mmol/L, Range (22-29), Anion Gap 12 mmol/L, Range (10-20), BUN (Urea Nitrogen) 15 mg/dL, Range (9.8-20.1), *Creatinine 1.36 - H mg/dL, Range (0.6-1.1), Estimated GFR-MDRD 48 , Reference Range for Estimated GFR: Greater than 90, mL/min/1.73 m2 NOTE: The MDRD equation has not been validated for use, with the elderly (over 70 years of age), women, patients with, serious comorbid condition or persons with extremes of body size, muscle, mass, or nutritional status. , Glucose 100 mg/dL, Range (70-105), Calcium 10.1 mg/dL, Range (7.8-10.44), Bilirubin, Total 0.3 mg/dL, Range (0.2-1.2), Protein, Total 6.4 g/dL, Range (6.0-8.3), NOTE: Plasma values are generally 0.3 to 0.5 g/dL higher than serum values, due to the presence of fibrinogen. , Albumin 3.8 g/dL, Range (3.5-5.0), Globulin 2.6 g/dL, Range (2.4-3.5), Alb/Glob Ratio 1.5 g/dL, Range (1.2-2.2), Alkaline Phosphatase 62 U/L, Range (40-150), AST (SGOT) 13 U/L, Range (5-34), ALT (SGPT) Less than 6 U/L, Range (0-55). (12:41 JPIP) Cardiac Profile w/CKMB & TropI Collection DT: ThuJul 15, 2016 12:08, CKMB 1.3 ng/mL, Range (0-6.6), Troponin I 0.025 ng/mL, Range (< 0.028), Reference Range , 0.00 - 0.028 ng/mL Negative 0.029 - 0.29 ng/mL , Indeterminate Greater or Equal to 0.3 ng/mL Strongly suggests ID , . (12:41 JP) B type Natriuretic Peptide Collection DT: ThuJul 15, 2016 12:08, *B type Natriuretic Peptide 141.4 - H pg/mL, Range (0-100). (12:46 JPIP) MICROBIOLOGY: Influenza A&B Ag Screen: [id number] Collection DT: ThuJul 15, 2016 12:08, See comment below , @ ER ROOM#: [id number] Source: Nasal swab Spec Desc: , Influenza A Antigen: NEGATIVE for the , presence of , INFLUENZA A Antigen , Influenza B Antigen: NEGATIVE for the , presence of , INFLUENZA B Antigen , The rapid Flu A&B test can distinguish between influenza A , &a-1R&a+25V*p+0X*j2550O*c202B*c15G*c2P*p-0X&a-25V&a+1R Name: Jesenia Lakekristen Del Toro : 1955 F61 MedRec: [id number] AcctNum: [id number] Prepared: ThuJul 15, 2016 14:08 by Interface Page 13 14 pMD [facility] EM[facility]GENCY RECORD Influenza A&B Ag Screen See comment below , and B viruses, but it does not differentiate influenza , Influenza A&B Ag Screen See comment below , subtypes. , Influenza A&B Ag Screen See comment below , Influenza A&B Ag Screen See comment below , Influenza A&B Ag Screen See comment below , Influenza A&B Ag Screen See comment below , characteristics of this device with human specimens infected , Influenza A&B Ag Screen See comment below , with the 2008 H1N1 influenza virus have not been , Influenza A&B Ag Screen See comment below , established. For example: this test cannot distinguish , Influenza A&B Ag Screen See comment below , influenza infections caused by novel H1N1 influenza A , Influenza A&B Ag Screen See comment below , viruses versus seasonal influenza A viruses. , Influenza A&B Ag Screen See comment below , , Influenza A&B Ag Screen See comment below , A negative result does not exclude influenza virus , Influenza A&B Ag Screen See comment below , infection; therefore, if more conclusive testing is desired, , Influenza A&B Ag Screen See comment below , follow up confirmatory testing is warranted., Influenza A&B Ag Screen See comment below . (13:07 JPIP) Dailey: AHOO=JIGNA Bledsoe, September JPIP=DO [place] Joseph KMOR=CALLY Marinelli, Oriana &a-1R&a+25V*p+0X*s8198N*c202B*c15G*c2P*p-0X&a-25V&a+1R Name: Heide Lake : 1955 F61 MedRec: [id number] AcctNum: [id number] Prepared: ThuJul 15, 2016 14:08 by Interface Page 14 14 pMD [facility]
--- NOTE | 2016-07-15 21:36 | RAD ---
PORTABLE CHEST 07/15/16 An AP portable film at 1208 is compared with a 03/11/16 study. The heart is normal in size and the lungs are clear. No infiltrate or effusion was seen. The trachea is midline and the mediastinum was unremarkable in appearance. Faint calcification is seen in the a ortic arch. IMPRESSION: No acute finding. POS: HOME
== END 2016-07-15 14:02 | disposition short-term general hospital (02) ==
LOC: BURERS 11:36
DX: J44.1 Chronic obstructive pulmonary disease with (acute) exacerbation (principal); I11.0 Hypertensive heart disease with heart failure; I50.9 Heart failure, unspecified; I25.10 Atherosclerotic heart disease of native coronary artery without angina pectoris; I48.91 Unspecified atrial fibrillation; E78.5 Hyperlipidemia, unspecified; I25.2 Old myocardial infarction; F31.9 Bipolar disorder, unspecified; F20.9 Schizophrenia, unspecified; F17.210 Nicotine dependence, cigarettes, uncomplicated; Z86.73 Personal history of transient ischemic attack (TIA), and cerebral infarction without residual deficits
CPT/HCPCS: 71010; 80053; 82553; 83605; 83880; 84484; 85025; 87040; 87070; 87149; 87205; 93005; 94640; 94760; 96361; 96365; 96367; 96375; J0696; J2930; J3475; J7620

== ENCOUNTER 2016-08-27 14:23 | Outpatient (CLI) | payer OTHER ==
[2016-08-27 14:43] LABS: #Basophils 0.1 thou/uL (0.0-0.2); #Eosinphils 0.1 thou/uL (0.0-0.7); #Lymphocytes 2.7 thou/uL (1.20-3.40); #Monocytes 0.5 thou/uL (0.11-0.59); #Neutrophils 4.8 thou/uL (1.40-6.50); %Basophils 1.4 % (0.0-1.0); %Eosinophils 1.1 % (0.0-10.0); %Lymphocytes 32.6 % (21.0-51.0); %Monocytes 6.2 % (0.0-10.0); %Neutrophils 58.7 % (42.0-75.0); Hemoglobin 12.2 g/dL (12.0-16.0); Mean Corpuscular Hemoglobin 30.5 pg (27.0-31.0); Mean Corpuscular Volume 95.2 fl (81.0-99.0); Mean Platelet Volume 6.4 fL (7.4-10.4); Platelet Count 264 thou/uL (130-400); RBC Distribution Width 13.3 % (11.5-14.5); Red Blood Cell (RBC) Count 3.99 mill/uL (4.20-5.40); White Blood Cell (WBC) Count 8.1 thou/uL (4.8-10.8)
[2016-08-27 14:58] LABS: ALT (SGPT) 8 U/L (0-55); AST (SGOT) 14 U/L (5-34); Albumin 4.3 g/dL (3.5-5.0); Alkaline Phosphatase 57 U/L (40-150); Anion Gap 11 mmol/L (10-20); BUN (Urea Nitrogen) 16 mg/dL (9.8-20.1); Bilirubin, Total 0.4 mg/dL (0.2-1.2); Calc. Creatinine Clearance 0 mL/min (70-130); Carbon Dioxide 22 mmol/L (22-29); Cardiac Risk 4.7 (Less than 4.5); Chloride 112 mmol/L (98-107); Cholesterol 232 mg/dL (< 200 Desired); Estimated GFR-MDRD 48; Globulin 2.7 g/dL (2.4-3.5); Glucose 89 mg/dL (70-105); HDL Cholesterol 49 mg/dL (>60 Neg Risk); LDL Cholesterol, Calculated 171 mg/dL; Potassium 4.2 mmol/L (3.5-5.1); Sodium 141 mmol/L (136-145); Triglycerides 61 mg/dL (Less than 150)
== END 2016-08-27 14:24 | disposition home or self-care (01) ==
LOC: HPCALD 14:23
PROVIDERS: ATTEND Physician Assistant
DX: I10 Essential (primary) hypertension (principal)
CPT/HCPCS: 36415; 80053; 80061; 84443; 85025

== ENCOUNTER 2017-01-26 14:08 | Outpatient (CLI) | payer OTHER ==
[2017-01-26 15:55] LABS: ALT (SGPT) 8 U/L (8-55); AST (SGOT) 16 U/L (5-34); Albumin 4.5 g/dL (3.5-5.0); Alkaline Phosphatase 66 U/L (40-150); Anion Gap 12 mmol/L (10-20); BUN (Urea Nitrogen) 21 mg/dL (9.8-20.1); Bilirubin, Total 0.3 mg/dL (0.2-1.2); Calc. Creatinine Clearance 0 mL/min (70-130); Calcium 11.2 mg/dL (7.8-10.44); Carbon Dioxide 27 mmol/L (22-29); Chloride 107 mmol/L (98-107); Estimated GFR-MDRD 43; Globulin 3.5 g/dL (2.4-3.5); Glucose 99 mg/dL (70-105); Potassium 4.4 mmol/L (3.5-5.1); Sodium 142 mmol/L (136-145)
[2017-01-27 18:05] LABS: HBSAg Index 0.21 S/CO (0-0.99); Hep A IgM AB Non-Reactive (NonReactive); Hep A IgM S/CO 0.53 S/CO (0-0.79); Hep B Surf Ag Non-Reactive S/CO (NonReactive); Hep C IgG Ab Non-Reactive (NonReactive); Hep C Index 0.57 S/CO (0-0.79)
[2017-01-27 18:37] LABS: Hep B Core Total Index 9.39 S/CO (0-0.79)
[2017-01-27 18:38] LABS: HBSAB Concentration 5392.65 mIU/mL; Hep B Core Total Ab Reactive (NonReactive); Hep B Surf AB Reactive (NonReactive)
[2017-01-28 15:56] LABS: HIV (1/2) Antibody/Antigen Non-Reactive (NonReactive); HIV 1/2 INDEX 0.14 S/CO (<1.00)
== END 2017-01-26 14:09 | disposition home or self-care (01) ==
LOC: BURLAB 14:08
PROVIDERS: ATTEND Family Medicine
DX: N28.9 Disorder of kidney and ureter, unspecified (principal); Z20.5 Contact with and (suspected) exposure to viral hepatitis
CPT/HCPCS: 36415; 80053; 86592; 86704; 86706; 86709; 86803; 87340; 87389

== ENCOUNTER 2017-02-13 12:18 | Outpatient (CLI) | payer OTHER ==
[2017-02-13 13:04] LABS: #Basophils 0.1 thou/uL (0.0-0.2); #Eosinphils 0.2 thou/uL (0.0-0.7); #Lymphocytes 2.8 thou/uL (1.20-3.40); #Monocytes 0.6 thou/uL (0.11-0.59); #Neutrophils 3.8 thou/uL (1.40-6.50); %Basophils 1.7 % (0.0-1.0); %Eosinophils 2.4 % (0.0-10.0); %Lymphocytes 36.7 % (21.0-51.0); %Monocytes 8.3 % (0.0-10.0); %Neutrophils 50.9 % (42.0-75.0); Hemoglobin 13.8 g/dL (12.0-16.0); Mean Corpuscular Hemoglobin 31.9 pg (27.0-31.0); Mean Corpuscular Volume 99.6 fl (81.0-99.0); Mean Platelet Volume 6.6 fL (7.4-10.4); Platelet Count 252 thou/uL (130-400); RBC Distribution Width 13.3 % (11.5-14.5); Red Blood Cell (RBC) Count 4.34 mill/uL (4.20-5.40); White Blood Cell (WBC) Count 7.5 thou/uL (4.8-10.8)
[2017-02-13 13:16] LABS: Calcium 10.8 mg/dL (7.8-10.44); Cardiac Risk 4.3 (Less than 4.5)
[2017-02-17 05:14] LABS: Ionized Calcium 5.6 mg/dL (4.5-5.6)
== END 2017-02-13 12:19 | disposition home or self-care (01) ==
LOC: BURLAB 12:18
PROVIDERS: ATTEND Family Medicine
DX: Z00.00 Encounter for general adult medical examination without abnormal findings (principal); Z20.6 Contact with and (suspected) exposure to human immunodeficiency virus [HIV]; Z20.5 Contact with and (suspected) exposure to viral hepatitis; E78.00 Pure hypercholesterolemia, unspecified; E83.52 Hypercalcemia
CPT/HCPCS: 36415; 80061; 82310; 82330; 83970; 84443; 85025

== ENCOUNTER 2017-05-06 11:55 | Emergency (ER) | payer OTHER ==
[2017-05-06] MEDS ORDERED: Adacel (T-DAP) 0.5 ML VIAL ONE (12:21)
[2017-05-06] MEDS ORDERED: Bacitracin Zinc 1 Packet ONE (12:37)
== END 2017-05-06 12:46 | disposition critical access hospital (66) ==
LOC: BURERS 11:55
DX: S71.112A Laceration without foreign body, left thigh, initial encounter (principal); I25.10 Atherosclerotic heart disease of native coronary artery without angina pectoris; I48.91 Unspecified atrial fibrillation; E78.5 Hyperlipidemia, unspecified; J44.9 Chronic obstructive pulmonary disease, unspecified; I11.0 Hypertensive heart disease with heart failure; I50.9 Heart failure, unspecified; I25.2 Old myocardial infarction; F31.9 Bipolar disorder, unspecified; F20.9 Schizophrenia, unspecified; F17.210 Nicotine dependence, cigarettes, uncomplicated; Z86.73 Personal history of transient ischemic attack (TIA), and cerebral infarction without residual deficits; W54.0XXA Bitten by dog, initial encounter
CPT/HCPCS: 90471; 90715

== ENCOUNTER 2017-05-11 15:06 | Emergency (ER) | payer OTHER ==
[2017-05-11] MEDS ORDERED: Ketorolac Tromethamine 30 MG/ML VIAL ONE (15:32)
[2017-05-11 15:59] LABS: Band 4 % (5-11); Hemoglobin 12.5 g/dL (12.0-16.0); Lymphocytes 8 % (21-51); MDiff Complete? YES; Mean Corpuscular HGB CONC 32.4 g/dL (32.0-36.0); Mean Corpuscular Hemoglobin 31.3 pg (27.0-31.0); Mean Corpuscular Volume 96.6 fl (81.0-99.0); Mean Platelet Volume 6.8 fL (7.4-10.4); Monocytes 12 % (0-10); Neutrophil 76 % (42-75); Platelet Count 238 thou/uL (130-400); RBC Distribution Width 12.9 % (11.5-14.5); Red Blood Cell (RBC) Count 3.99 mill/uL (4.20-5.40); White Blood Cell (WBC) Count 6.8 thou/uL (4.8-10.8)
[2017-05-11 16:00] LABS: ALT (SGPT) 8 U/L (8-55); AST (SGOT) 15 U/L (5-34); Alkaline Phosphatase 66 U/L (40-150); Anion Gap 14 mmol/L (10-20); BUN (Urea Nitrogen) 13 mg/dL (9.8-20.1); Bilirubin, Total 0.4 mg/dL (0.2-1.2); Calc. Creatinine Clearance 0 mL/min (70-130); Calcium 10.4 mg/dL (7.8-10.44); Carbon Dioxide 20 mmol/L (22-29); Chloride 106 mmol/L (98-107); Estimated GFR-MDRD 48; Globulin 3.2 g/dL (2.4-3.5); Glucose 96 mg/dL (70-105); Potassium 4.2 mmol/L (3.5-5.1); Protein, Total 7.2 g/dL (6.0-8.3); Sodium 136 mmol/L (136-145)
[2017-05-11 16:02] LABS: Bilirubin Negative (Negative); Blood, Urine Small (Negative); Clarity Clear (Clear); Glucose, Urine (Dipstick) Negative (Negative); Leukocyte Negative (Negative); Nitrite Negative (Negative); Protein, Urine (Dipstick) 30 mg/dL (Neg-Trace)
[2017-05-11 16:02] LABS: CKMB 0.5 ng/mL (0-6.6); Troponin I 0.022 ng/mL (< 0.028)
[2017-05-11] MEDS ORDERED: Benzonatate 100 MG CAP ONE (16:11)
[2017-05-11 16:19] LABS: Bacteria/HPF Rare-Few HPF (None Seen); Crystals/HPF None Seen HPF (Negative); Hyaline Casts/LPF NONE SEEN LPF (0-3 Hyaline); Other Casts/LPF None Seen LPF (0-3 Hyaline); Oval Fat Bodies/HPF None Seen HPF (None Seen); RBC/HPF 0-3 HPF (0-3); Renal Epithelial None Seen HPF (0-3); Sperm/HPF None Seen HPF (None Seen); Squamous Epithelial None Seen HPF (0-3); Transitional Epithelial NONE SEEN HPF (0-3); Trichomonas/HPF None Seen HPF (None Seen); WBC/HPF 0-3 HPF (0-3); Yeast-All Forms None Seen HPF (None Seen)
[2017-05-11] MEDS ORDERED: Acetaminophen 325 MG TAB ONE (17:13)
--- NOTE | 2017-05-11 17:16 | RAD ---
CHEST TWO VIEWS: Date: 05-11-17 Comparison: 03-13-17 FINDINGS: The heart is normal in size and the lungs are clear. There are no convincing findings of pneumonia at the moment. Some of the lung markings behind the heart are perhaps a little course, but not necessar flavio different than older films. Faint calcification is seen in the aortic arch as usual. The mediasti num appears normal. IMPRESSION: No definite acute findings at this time. Consider follow up study if symptoms do not natalie. POS: HOME
== END 2017-05-11 17:25 | disposition home or self-care (01) ==
LOC: BURERS 15:06
DX: J06.9 Acute upper respiratory infection, unspecified (principal); I25.10 Atherosclerotic heart disease of native coronary artery without angina pectoris; I48.91 Unspecified atrial fibrillation; E78.5 Hyperlipidemia, unspecified; I25.2 Old myocardial infarction; J44.9 Chronic obstructive pulmonary disease, unspecified; F31.9 Bipolar disorder, unspecified; F20.9 Schizophrenia, unspecified; F17.210 Nicotine dependence, cigarettes, uncomplicated; I11.0 Hypertensive heart disease with heart failure; I50.9 Heart failure, unspecified; Z86.73 Personal history of transient ischemic attack (TIA), and cerebral infarction without residual deficits
CPT/HCPCS: 71020; 80053; 81003; 81015; 82553; 84484; 85025; 93005; 96365; J1885

== ENCOUNTER 2017-07-22 09:12 | Outpatient (CLI) | payer OTHER ==
--- NOTE | 2017-07-22 19:36 | RAD ---
RIGHT KNEE TWO VIEWS: 07/22/17 No fracture or joint effusion was seen. All bones appeared intact. The position does not allow me to comment on the placement of the patella in terms of subluxation. The joint space is normal in width. IMPRESSION: No acute findings. POS: HOME
== END 2017-07-22 09:13 | disposition home or self-care (01) ==
LOC: BURRAD 09:12
PROVIDERS: ATTEND Family Medicine
DX: M25.561 Pain in right knee (principal)

== ENCOUNTER 2017-08-04 09:00 | Outpatient (CLI) | payer OTHER ==
--- NOTE | 2017-08-04 20:53 | CT ---
CT CHEST WITHOUT CONTRAST CT ABDOMEN AND PELVIS WITHOUT CONTRAST 08/04/17 COMPARISON: Comparison is made with a CT angio of the chest dated 03/11/16. Axial slices were acquired, then coron al and sagittal reconstructions were done. Originally, the exam was ordered with IV contrast. Because of a very low GFR, and a comment by the cesario ledezma that a urologist had told her to not have IV contrast, we decided to due the exam without. This did not seem to significantly hamper the results. CT OF THE THORAX: A noncontrast CT of the thorax was obtained. Emphysematous changes are present throughout the lungs b ilaterally. There is a pulmonary nodule in the base of the right upper lobe laterally just slightly s uperior to the minor fissure. There is slight spiculation at its margins and a blood vessel is travel ing to it. It was not present on the 2016 scan. Pulmonary neoplasm is strongly suspected, given this appearance and it developing overtime. There is a nondescript ground glass density in the left lower lobe laterally that has been commented on before. It really has only changed minimally. It measures a bout 1 cm in size and perhaps is a little more prominent than before but not by much. No other pulmon melissa nodules were seen. A few calcified granulomas were present in the lungs. There are no effusions. The mediastinum showed no sign of mass or significant adenopathy. Coronary artery calcifications are present but minimal. There is no sign of pericardial fluid. Degenerative changes are seen in the thor acic spine. No bony destructive lesions were appreciated. IMPRESSION: 1. Diffuse emphysematous changes with a new 1.2 cm nodule in the base of the right upper lobe la terally. Given slightly spiculated margins and appearance over a 1.5 year interval, the suspicion of neoplasm is strong. 2. Nondescript ground glass density in the left lower lobe laterally. This has been seen on prio r scans. It is marginally more solid in appearance than it was before, but the differences over time are only slight. 3. Arteriosclerotic changes noted. CT ABDOMEN AND PELVIS: Noncontrast CT of the abdomen and pelvis was done using oral contrast only. The liver, spleen, pancre as, adrenal glands, kidneys, and abdominal aorta showed no acute findings within the limitations of a noncontrast study. There has been a prior cholecystectomy. The aorta shows no aneurysm but is densel y calcified. There is an abundance of fecal material in the colon but there is no sign of obstruction. No bowel wa ll thickening was seen. Mesenteric regions were unremarkable. CT of the pelvis showed no pelvic masses, fluid collections or inflammatory changes. Some degenerativ e changes are present in the lumbar spine, particularly at L5-S1. IMPRESSION: Mild constipation but no acute abdominal or pelvic findings otherwise. Code T POS: HOME
== END 2017-08-04 09:01 | disposition home or self-care (01) ==
LOC: BURCT 09:00
PROVIDERS: ATTEND Family Medicine
DX: R91.1 Solitary pulmonary nodule (principal); R10.9 Unspecified abdominal pain; K59.00 Constipation, unspecified
CPT/HCPCS: 71250; 74177

== ENCOUNTER 2017-08-19 10:57 | Emergency (ER) | payer OTHER ==
[2017-08-19 11:23] LABS: PTT 23.6 SEC (22.9-36.1)
[2017-08-19 11:24] LABS: Prothrombin Time 13.7 SEC (12.0-14.7)
[2017-08-19 11:29] LABS: Band 1 % (5-11); Eosinophils 2 % (0-10); Hemoglobin 13.4 g/dL (12.0-16.0); Lymphocytes 26 % (21-51); MDiff Complete? YES; Mean Corpuscular HGB CONC 34.9 g/dL (32.0-36.0); Mean Corpuscular Hemoglobin 32.8 pg (27.0-31.0); Mean Corpuscular Volume 94.1 fl (81.0-99.0); Mean Platelet Volume 6.6 fL (7.4-10.4); Monocytes 4 % (0-10); Neutrophil 67 % (42-75); Platelet Count 230 thou/uL (130-400); RBC Distribution Width 13.8 % (11.5-14.5); Red Blood Cell (RBC) Count 4.08 mill/uL (4.20-5.40); White Blood Cell (WBC) Count 7.7 thou/uL (4.8-10.8)
[2017-08-19 11:33] LABS: ALT (SGPT) 16 U/L (8-55); AST (SGOT) 15 U/L (5-34); Albumin 3.6 g/dL (3.5-5.0); Alkaline Phosphatase 54 U/L (40-150); Anion Gap 12 mmol/L (10-20); BUN (Urea Nitrogen) 23 mg/dL (9.8-20.1); Bilirubin, Total 0.2 mg/dL (0.2-1.2); Calc. Creatinine Clearance 0 mL/min (70-130); Calcium 10.2 mg/dL (7.8-10.44); Carbon Dioxide 24 mmol/L (22-29); Chloride 109 mmol/L (98-107); Estimated GFR-MDRD 43; Globulin 2.9 g/dL (2.4-3.5); Glucose 99 mg/dL (70-105); Potassium 4.8 mmol/L (3.5-5.1); Protein, Total 6.5 g/dL (6.0-8.3); Sodium 140 mmol/L (136-145)
[2017-08-19 11:35] LABS: CKMB 2.1 ng/mL (0-6.6); Troponin I 0.039 ng/mL (< 0.028)
--- NOTE | 2017-08-19 18:04 | CT ---
CT AORTIC DISSECTION WITH CONTRAST 08/19/[address] of the thorax and abdomen was performed for evaluation of the patient's aorta. Comparison i s made with the prior CT chest, abdomen and pelvis dated 08/04/17 that was done without contrast. Axia l slices were initially acquired. Coronal and sagittal reconstructions were then obtained. There is no sign of aortic aneurysm or dissection. There is considerable arteriosclerotic change in t he abdominal aorta. Some plaques are seen around the origin of the celiac and SMA and it would not tubbs rprise me if there was some mild stenosis at the origin of the celiac artery. There is still blood fl ow within it, however. The worst arteriosclerotic change is in the infrarenal level down to the proxi mal iliac arteries. The mesenteric vessels appear to fill with contrast. There is plaque at the origi n of each renal artery, particularly the left, though both kidneys appear to perfuse. CT images of the chest show a known nodule in the base of the right upper lobe laterally. It was cassie ured at 1.1 cm today, comparable to before. No new nodules were seen. As before, there was a ground g lass density in the left lower lobe laterally, though it seems slightly smaller and more difficult to measure today. There are no effusions. The mediastinum showed no sign of mass or adenopathy. There d oes appear to be considerable left ventricular hypertrophy, however. Some coronary artery calcificati on is present, particularly in the left coronary system. The abdomen showed no acute changes. The liver, spleen, pancreas, adrenal glands, kidneys, and abdomi nal wall were unremarkable in appearance. There is no distention of bowel, nor is there inflammatory change around it. CT of the pelvis showed no pelvic masses, fluid collections, or inflammatory changes. IMPRESSION: 1. Extensive arteriosclerosis, particularly in the abdominal aorta. No evidence of aortic aneury sm or dissection. 2. There might be some stenosis at the origin of the celiac artery. There is also considerable p laque around the origin of the left renal artery. 3. Known pulmonary nodule in the base of the right lower lobe laterally. Measured at 1.1 cm toda y, similar to the July study. Neoplasia is possible. 4. Left ventricular hypertrophy. POS: HOME
== END 2017-08-19 12:55 | disposition short-term general hospital (02) ==
LOC: BURERS 10:57
DX: I95.9 Hypotension, unspecified (principal); R07.9 Chest pain, unspecified; I25.10 Atherosclerotic heart disease of native coronary artery without angina pectoris; I48.91 Unspecified atrial fibrillation; I49.9 Cardiac arrhythmia, unspecified; E78.5 Hyperlipidemia, unspecified; J44.9 Chronic obstructive pulmonary disease, unspecified; I25.2 Old myocardial infarction; I13.0 Hypertensive heart and chronic kidney disease with heart failure and stage 1 through stage 4 chronic kidney disease, or unspecified chronic kidney disease; N18.9 Chronic kidney disease, unspecified; I50.9 Heart failure, unspecified; F31.9 Bipolar disorder, unspecified; F20.9 Schizophrenia, unspecified; F17.210 Nicotine dependence, cigarettes, uncomplicated; Z86.73 Personal history of transient ischemic attack (TIA), and cerebral infarction without residual deficits
CPT/HCPCS: 36415; 71275; 80053; 82553; 84484; 85025; 85610; 85730; 93005; 96360; 96361

== ENCOUNTER 2017-12-15 16:48 | Emergency (ER) | payer OTHER ==
[2017-12-15] MEDS ORDERED: predniSONE 20 MG TAB ONE (17:12)
--- NOTE | 2017-12-15 22:13 | RAD ---
CHEST TWO VIEWS: 12/15/17 Comparison is made with prior chest x-ray of 08/11/17. I also reviewed her 08/19/17 CT scan that showed a new nodule in the base of the right upper lobe. Today's exam shows a normal sized heart with no vascular congestion, edema, or pleural effusion. Deedee riosclerotic change is seen in the aorta. Faintly visible is a 1.3 cm nodule that has been shown to b e in the base of the right upper lobe by CT. It was measured at 1.1 cm in size on the CT in us, any meter changes records clerk time is minimal considering differences in measurement and modality. The ruchi wer e unremarkable. There are no lobar consolidations visible. Faint haziness over the right base is felt to be due to the overlying soft tissues. The lungs are slightly hyperexpanded as usual. IMPRESSION: 1. No acute thoracic findings. 2. 1.3 cm nodule in the base of the right upper lobe, probably comparable in size to the August 07 CT scan. 3. Arteriosclerosis. POS: HOME
== END 2017-12-15 17:51 | disposition home or self-care (01) ==
LOC: BURERS 16:48
DX: J06.9 Acute upper respiratory infection, unspecified (principal); I25.10 Atherosclerotic heart disease of native coronary artery without angina pectoris; I48.91 Unspecified atrial fibrillation; E78.5 Hyperlipidemia, unspecified; I11.0 Hypertensive heart disease with heart failure; I50.9 Heart failure, unspecified; Z86.73 Personal history of transient ischemic attack (TIA), and cerebral infarction without residual deficits; J44.9 Chronic obstructive pulmonary disease, unspecified; I25.2 Old myocardial infarction; F31.9 Bipolar disorder, unspecified; F20.9 Schizophrenia, unspecified; F17.210 Nicotine dependence, cigarettes, uncomplicated
CPT/HCPCS: 71046; 93005; J7506; J7620

== ENCOUNTER 2018-06-02 09:33 | Emergency (ER) | payer OTHER ==
[2018-06-02 09:55] LABS: #Basophils 0.1 thou/uL (0.0-0.2); #Eosinphils 0.1 thou/uL (0.0-0.7); #Lymphocytes 2.2 thou/uL (1.20-3.40); #Neutrophils 8.3 thou/uL (1.40-6.50); %Eosinophils 0.9 % (0.0-10.0); %Lymphocytes 18.8 % (21.0-51.0); %Monocytes 8.8 % (0.0-10.0); %Neutrophils 70.5 % (42.0-75.0); Hemoglobin 11.8 g/dL (12.0-16.0); Mean Corpuscular Hemoglobin 30.4 pg (27.0-31.0); Mean Platelet Volume 6.5 fL (7.4-10.4); Platelet Count 320 thou/uL (130-400); RBC Distribution Width 11.9 % (11.5-14.5); Red Blood Cell (RBC) Count 3.87 mill/uL (4.20-5.40); White Blood Cell (WBC) Count 11.8 thou/uL (4.8-10.8)
[2018-06-02] MEDS ORDERED: Nitroglycerin 0.4 MG TAB (25 Tab Bottle) ONE (09:59)
[2018-06-02 10:13] LABS: ALT (SGPT) 11 U/L (8-55); AST (SGOT) 12 U/L (5-34); Alkaline Phosphatase 72 U/L (40-150); Anion Gap 15 mmol/L (10-20); BUN (Urea Nitrogen) 18 mg/dL (9.8-20.1); Bilirubin, Total 0.2 mg/dL (0.2-1.2); CK (CPK) 230 U/L (29-168); Calc. Creatinine Clearance 0 mL/min (70-130); Calcium 11.2 mg/dL (7.8-10.44); Carbon Dioxide 24 mmol/L (23-31); Chloride 108 mmol/L (98-107); Estimated GFR-MDRD 49; Globulin 3.5 g/dL (2.4-3.5); Glucose 79 mg/dL (80-115); Potassium 3.5 mmol/L (3.5-5.1); Protein, Total 7.5 g/dL (6.0-8.3); Sodium 143 mmol/L (136-145)
[2018-06-02] MEDS ORDERED: Morphine 4 MG/ML VIAL ONE (10:21)
[2018-06-02] MEDS ORDERED: Pantoprazole 40 MG VIAL ONE (10:21)
[2018-06-02] MEDS ORDERED: Ondansetron PF 4 MG/2 ML Vial ONE (10:21)
[2018-06-02] MEDS ORDERED: Benzonatate 100 MG CAP ONE (10:33)
--- NOTE | 2018-06-02 11:22 | RAD ---
PORTABLE CHEST 1 VIEW: Date: 06/02/18 Time: 0924 hours HISTORY: Chest pain, lung cancer. FINDINGS: Comparison made with exam of 05/04/18. The heart size is normal. The lungs are expanded without focal areas of consolidation, pneumothoraces , or pleural effusions. IMPRESSION: No radiographic evidence of acute cardiopulmonary process. POS: OFF
== END 2018-06-02 12:34 | disposition short-term general hospital (02) ==
LOC: BURERS 09:33
DX: R07.2 Precordial pain (principal); I25.10 Atherosclerotic heart disease of native coronary artery without angina pectoris; I48.91 Unspecified atrial fibrillation; E78.5 Hyperlipidemia, unspecified; I11.0 Hypertensive heart disease with heart failure; I50.9 Heart failure, unspecified; Z86.73 Personal history of transient ischemic attack (TIA), and cerebral infarction without residual deficits; J44.9 Chronic obstructive pulmonary disease, unspecified; I25.2 Old myocardial infarction; F31.9 Bipolar disorder, unspecified; F20.9 Schizophrenia, unspecified; F17.210 Nicotine dependence, cigarettes, uncomplicated
CPT/HCPCS: 71045; 80053; 82550; 84484; 85025; 85379; 93005; 96374; 96375; C9113; J2270; J2405

== ENCOUNTER 2018-06-22 10:49 | Emergency (ER) | payer OTHER ==
[2018-06-22] MEDS ORDERED: Lorazepam 2 MG/ML VIAL ONE (11:09)
[2018-06-22] MEDS ORDERED: Ketorolac Tromethamine 30 MG/ML VIAL ONE (11:10)
[2018-06-22] MEDS ORDERED: Nitroglycerin 0.4 MG TAB (25 Tab Bottle) ONE (11:12)
[2018-06-22 11:37] LABS: #Basophils 0.1 thou/uL (0.0-0.2); #Eosinphils 0.2 thou/uL (0.0-0.7); #Lymphocytes 2.8 thou/uL (1.20-3.40); #Monocytes 0.6 thou/uL (0.11-0.59); #Neutrophils 3.5 thou/uL (1.40-6.50); %Basophils 1.4 % (0.0-1.0); %Eosinophils 3.3 % (0.0-10.0); %Lymphocytes 38.7 % (21.0-51.0); %Neutrophils 48.7 % (42.0-75.0); Hemoglobin 12.9 g/dL (12.0-16.0); Mean Corpuscular HGB CONC 32.5 g/dL (32.0-36.0); Mean Corpuscular Volume 92.6 fL (78.0-98.0); Platelet Count 307 thou/uL (130-400); RBC Distribution Width 13.1 % (11.5-14.5); Red Blood Cell (RBC) Count 4.28 mill/uL (4.20-5.40); White Blood Cell (WBC) Count 7.2 thou/uL (4.8-10.8)
[2018-06-22 11:50] LABS: ALT (SGPT) 9 U/L (8-55); AST (SGOT) 15 U/L (5-34); Albumin 4.2 g/dL (3.4-4.8); Alkaline Phosphatase 70 U/L (40-150); Anion Gap 14 mmol/L (10-20); BUN (Urea Nitrogen) 25 mg/dL (9.8-20.1); Bilirubin, Total 0.3 mg/dL (0.2-1.2); Calc. Creatinine Clearance 0 mL/min (70-130); Calcium 11.1 mg/dL (7.8-10.44); Carbon Dioxide 21 mmol/L (23-31); Chloride 108 mmol/L (98-107); Estimated GFR-MDRD 47; Globulin 3.5 g/dL (2.4-3.5); Glucose 84 mg/dL (80-115); Potassium 4.3 mmol/L (3.5-5.1); Protein, Total 7.7 g/dL (6.0-8.3); Sodium 139 mmol/L (136-145)
[2018-06-22] MEDS ORDERED: cloNIDine 0.1 MG TAB ONE ×2 (12:08→13:08)
--- NOTE | 2018-06-22 19:23 | RAD ---
PORTABLE CHEST 06/22/18 An AP portable film at 1047 is compared with a 06/02/19 study. The heart is normal in size and the lungs are clear. There is no congestive change or pleural effusio n. Faint calcification is seen in the aortic arch as usual. The trachea is midline. IMPRESSION: No acute thoracic findings. POS: HOME
== END 2018-06-22 18:02 | disposition home or self-care (01) ==
LOC: BURERS 10:49
DX: R07.9 Chest pain, unspecified (principal); I25.10 Atherosclerotic heart disease of native coronary artery without angina pectoris; I48.91 Unspecified atrial fibrillation; I11.0 Hypertensive heart disease with heart failure; I50.9 Heart failure, unspecified; E78.5 Hyperlipidemia, unspecified; Z86.73 Personal history of transient ischemic attack (TIA), and cerebral infarction without residual deficits; J44.9 Chronic obstructive pulmonary disease, unspecified; I25.2 Old myocardial infarction; F31.9 Bipolar disorder, unspecified; F20.9 Schizophrenia, unspecified; F17.210 Nicotine dependence, cigarettes, uncomplicated
CPT/HCPCS: 36415; 71045; 80053; 83880; 84484; 85025; 93005; 94760; 96365; 96366; 96375; J1885; J2060

== ENCOUNTER 2018-11-11 08:46 | Outpatient (CLI) | payer OTHER ==
--- NOTE | 2018-11-11 14:35 | ULT ---
PELVIC ULTRASOUND WITH ENDOVAGINAL IMAGING: DATE: 11/11/2018. FINDINGS: Ultrasonography of the pelvis was done for evaluation of postmenopausal bleeding. Initial scans were abnormal and the adnexal regions were seen poorly. Endovaginal scans were then obtained. The uterus is abnormal in appearance. It measures 6.5 x 3.5 x 4.4 cm. Internally, the endometrium, specifically, is abnormal. There is a 1.7 cm solid area here that is either endometrial mass or abno rmal endometrial thickening. Followup in biopsy is needed. The possibility of an endometrial neopla sm is raised. Both adnexal regions were imaged with both abdominal and endovaginal probes. Neither ovary was visua lized. There is no free fluid in the cul-de-sac. IMPRESSION: Endometrial mass versus thickening. In either case, the area is grossly abnormal and suggests the po ssibility of neoplastic change. Further workup needed. Dr. Proctor called at 1108 on 11/11/2018. CODE CR POS: HOME
== END 2018-11-11 08:47 | disposition home or self-care (01) ==
LOC: BURULT 08:46
PROVIDERS: ATTEND Family Medicine
DX: N95.0 Postmenopausal bleeding (principal)
CPT/HCPCS: 76856

== ENCOUNTER 2018-12-30 19:40 | Emergency (ER) | payer OTHER ==
[2018-12-30] MEDS ORDERED: Ondansetron ODT 4 MG TAB ONE (19:52)
[2018-12-30 20:35] LABS: ALT (SGPT) 12 U/L (8-55); AST (SGOT) 16 U/L (5-34); Albumin 4.1 g/dL (3.4-4.8); Alkaline Phosphatase 71 U/L (40-150); Anion Gap 15 mmol/L (10-20); BUN (Urea Nitrogen) 15 mg/dL (9.8-20.1); Bilirubin, Total 0.5 mg/dL (0.2-1.2); Calc. Creatinine Clearance 0 mL/min (70-130); Calcium 10.6 mg/dL (7.8-10.44); Carbon Dioxide 22 mmol/L (23-31); Chloride 106 mmol/L (98-107); Estimated GFR-MDRD 54; Globulin 2.7 g/dL (2.4-3.5); Glucose 93 mg/dL (80-115); Lipase 19 U/L (8-78); Potassium 4.5 mmol/L (3.5-5.1); Protein, Total 6.8 g/dL (6.0-8.3); Sodium 138 mmol/L (136-145)
[2018-12-30 20:46] LABS: Eosinophils 2 % (0-10); Hemoglobin 13.3 g/dL (12.0-16.0); Lymphocytes 13 % (21-51); MDiff Complete? YES; Mean Corpuscular HGB CONC 30.3 g/dL (32.0-36.0); Mean Corpuscular Hemoglobin 29.1 pg (27.0-31.0); Mean Corpuscular Volume 95.7 fL (78.0-98.0); Mean Platelet Volume 6.9 fL (7.4-10.4); Monocytes 2 % (0-10); Neutrophil 83 % (42-75); Platelet Count 228 thou/uL (130-400); RBC Distribution Width 14.8 % (11.5-14.5); Red Blood Cell (RBC) Count 4.59 mill/uL (4.20-5.40); White Blood Cell (WBC) Count 4.9 thou/uL (4.8-10.8)
== END 2018-12-30 21:05 | disposition home or self-care (01) ==
LOC: BURERS 19:40
DX: R11.2 Nausea with vomiting, unspecified (principal); R10.9 Unspecified abdominal pain; R19.7 Diarrhea, unspecified; R10.817 Generalized abdominal tenderness; I11.0 Hypertensive heart disease with heart failure; I50.9 Heart failure, unspecified; E78.5 Hyperlipidemia, unspecified; F31.9 Bipolar disorder, unspecified; F20.9 Schizophrenia, unspecified; J44.9 Chronic obstructive pulmonary disease, unspecified; M79.7 Fibromyalgia; I25.2 Old myocardial infarction; I25.10 Atherosclerotic heart disease of native coronary artery without angina pectoris; I48.91 Unspecified atrial fibrillation; Z86.73 Personal history of transient ischemic attack (TIA), and cerebral infarction without residual deficits; F17.210 Nicotine dependence, cigarettes, uncomplicated; Z79.899 Other long term (current) drug therapy
CPT/HCPCS: 80053; 83605; 83690; 84484; 85025; 93005; 96372; J0500; Q0162

== ENCOUNTER 2020-09-07 15:41 | Inpatient (IN) | payer OTHER ==
[2020-09-07] MEDS ORDERED: Nitroglycerin 2% Ointment 1 INCH/1 GM Packet ONE (16:01)
[2020-09-07] MEDS ORDERED: Aspirin Chewable 81 MG TAB ONE (16:01)
[2020-09-07 16:12] LABS: Hemoglobin 13.5 g/dL (12.0-16.0); Mean Corpuscular HGB CONC 32.4 g/dL (32.0-36.0); Mean Corpuscular Hemoglobin 31.2 pg (27.0-31.0); Mean Corpuscular Volume 96.3 fL (78.0-98.0); Mean Platelet Volume 7.1 fL (7.4-10.4); Platelet Count 232 thou/uL (130-400); RBC Distribution Width 14.3 % (11.5-14.5); Red Blood Cell (RBC) Count 4.33 mill/uL (4.20-5.40); White Blood Cell (WBC) Count 8.6 thou/uL (4.8-10.8)
[2020-09-07] MEDS ORDERED: Furosemide 40 MG/4 ML VIAL ONE (17:02)
[2020-09-07 17:29] LABS: ALT (SGPT) 11 U/L (8-55); AST (SGOT) 14 U/L (5-34); Alkaline Phosphatase 71 U/L (40-110); Anion Gap 14 mmol/L (10-20); BUN (Urea Nitrogen) 12 mg/dL (9.8-20.1); Bilirubin, Total 0.3 mg/dL (0.2-1.2); Calc. Creatinine Clearance 0 mL/min (70-130); Calcium 10.2 mg/dL (7.8-10.44); Carbon Dioxide 26 mmol/L (23-31); Chloride 106 mmol/L (98-107); Globulin 2.9 g/dL (2.4-3.5); Glucose 95 mg/dL (80-115); Potassium 4.1 mmol/L (3.5-5.1); Protein, Total 6.9 g/dL (5.8-8.1); Sodium 142 mmol/L (136-145)
[2020-09-07 17:30] LABS: Band 2 % (5-11); Eosinophils 2 % (0-10); Lymphocytes 38 % (21-51); MDiff Complete? YES; Monocytes 3 % (0-10); Neutrophil 54 % (42-75)
[2020-09-07] MEDS ORDERED: methylPREDNISolone Sod Succ/PF 125 MG/2 ML VIAL ONE (17:31)
[2020-09-07] MEDS ORDERED: Albuterol Sulfate 2.5 mg/0.5 ml Neb ONE (17:31)
[2020-09-07] MEDS ORDERED: cefTRIAXone\\ROCEPHIN 2 GM VIAL ONE (18:38)
[2020-09-07 19:33] LABS: Bilirubin Negative (Negative); Blood, Urine Negative (Negative); Clarity Clear (Clear); Glucose, Urine (Dipstick) Negative (Negative); Ketone, Urine Negative (Negative); Leukocyte Small (Negative); Nitrite Negative (Negative); Protein, Urine (Dipstick) Negative (Neg-Trace); Specific Gravity, Urine 1.015 (1.005-1.030); Urobilinogen 0.2 mg/dL (Less than 2)
[2020-09-07 19:43] LABS: Bacteria/HPF None Seen HPF (None Seen); RBC/HPF None Seen HPF (0-3); Squamous Epithelial 0-3 HPF (0-3); WBC/HPF 0-3 HPF (0-3)
[2020-09-07] MEDS ORDERED: Albuterol Sulfate 2.5 mg/3 ml Neb NEB PRN (20:49)
[2020-09-07] MEDS: hydrALAZINE 25 MG TAB PO SCH (20:58)
[2020-09-07] MEDS ORDERED: Ondansetron ODT 4 MG TAB SL PRN (21:00)
[2020-09-07] MEDS ORDERED: Ondansetron PF 4 MG/2 ML Vial IVP PRN (21:00)
[2020-09-07] MEDS ORDERED: Acetaminophen 325 MG TAB PO PRN (21:00)
[2020-09-07] MEDS: cloNIDine 0.1 MG TAB PO PRN (22:37)
[2020-09-07] MEDS: Ipratropium Bromide 2.5 ml Neb NEB SCH (23:22)
[2020-09-08] MEDS: methylPREDNISolone Sod Succ/PF 125 MG/2 ML VIAL IVP SCH ×3 (03:50→16:56)
[2020-09-08] MEDS: hydrALAZINE 25 MG TAB PO SCH ×3 (05:04→21:07)
[2020-09-08] MEDS: Ipratropium Bromide 2.5 ml Neb NEB SCH ×3 (05:06→16:56)
[2020-09-08 06:50] LABS: SARS-CoV-2 NAA Rapid Test Not Detected (NotDetected)
[2020-09-08] MEDS ORDERED: Nitroglycerin 0.4 MG TAB (25 Tab Bottle) SL PRN (08:51)
[2020-09-08] MEDS ORDERED: BUPROPION HCL 100 MG PO SCH (09:00)
[2020-09-08] MEDS ORDERED: predniSONE 20 MG TAB PO SCH (09:00)
[2020-09-08] MEDS ORDERED: Carvedilol 25 MG TAB PO SCH (09:00)
[2020-09-08] MEDS ORDERED: Clopidogrel Bisulfate 75 MG TAB PO SCH (09:00)
[2020-09-08] MEDS: guaiFENesin ER 600 MG TAB PO SCH ×2 (09:05→21:03)
[2020-09-08] MEDS: NIFEdipine XL 30 MG TAB PO SCH (09:05)
[2020-09-08] MEDS: Acetaminophen 325 MG TAB PO PRN (09:06)
[2020-09-08] MEDS: Aripiprazole 10 MG TAB PO SCH (09:08)
[2020-09-08] MEDS: Aspirin 81 mg Enteric Coated Tablet PO SCH (09:08)
[2020-09-08] MEDS: Spironolactone 25 MG TAB PO SCH (09:08)
[2020-09-08] MEDS: Bupropion 150 MG XL TAB PO SCH (09:08)
[2020-09-08] MEDS: hydrOXYzine 25 MG TAB PO SCH ×2 (09:08→21:03)
[2020-09-08] MEDS: Clopidogrel Bisulfate 75 MG TAB PO SCH (09:10)
[2020-09-08] MEDS: Carvedilol 25 MG TAB PO SCH ×2 (09:10→21:03)
[2020-09-08] MEDS: Mometasone/Formoterol 200/5 60 PUFF INH SCH ×2 (09:18→21:04)
[2020-09-08] MEDS: Gabapentin 100 MG CAP PO SCH (11:46)
[2020-09-08] MEDS ORDERED: methylPREDNISolone Sod Succ/PF 125 MG/2 ML VIAL IVP SCH (12:00)
[2020-09-08] MEDS: cloNIDine 0.1 MG TAB PO PRN ×2 (12:05→21:03)
[2020-09-08] MEDS: cefTRIAXone\\ROCEPHIN 1 GM in Sodium Chloride 0.9% 100 ML IVPB SCH (16:57)
[2020-09-08] MEDS: Amitriptyline HCl 25 MG TAB PO SCH (21:02)
[2020-09-08] MEDS: Atorvastatin Calcium 40 MG TAB PO SCH (21:02)
[2020-09-09] MEDS: cloNIDine 0.1 MG TAB PO PRN ×2 (00:54→14:50)
[2020-09-09] MEDS: Acetaminophen 325 MG TAB PO PRN (00:55)
[2020-09-09] MEDS: Ipratropium Bromide 2.5 ml Neb NEB SCH ×5 (00:56→23:32)
[2020-09-09] MEDS: methylPREDNISolone Sod Succ/PF 125 MG/2 ML VIAL IVP SCH ×3 (01:24→17:28)
[2020-09-09 05:36] LABS: ALT (SGPT) 8 U/L (8-55); AST (SGOT) 7 U/L (5-34); Albumin 3.5 g/dL (3.4-4.8); Alkaline Phosphatase 63 U/L (40-110); Anion Gap 14 mmol/L (10-20); BUN (Urea Nitrogen) 35 mg/dL (9.8-20.1); Bilirubin, Total Less than 0.2 mg/dL (0.2-1.2); Calc. Creatinine Clearance 43 mL/min (70-130); Calcium 9.9 mg/dL (7.8-10.44); Carbon Dioxide 25 mmol/L (23-31); Chloride 105 mmol/L (98-107); Globulin 2.6 g/dL (2.4-3.5); Glucose 139 mg/dL (80-115); Protein, Total 6.1 g/dL (5.8-8.1); Sodium 139 mmol/L (136-145)
[2020-09-09] MEDS: hydrALAZINE 25 MG TAB PO SCH ×3 (05:50→20:45)
[2020-09-09 06:28] LABS: Band 1 % (5-11); Hemoglobin 12.9 g/dL (12.0-16.0); Lymphocytes 11 % (21-51); MDiff Complete? YES; Mean Corpuscular Hemoglobin 31.4 pg (27.0-31.0); Mean Platelet Volume 7.5 fL (7.4-10.4); Monocytes 7 % (0-10); Neutrophil 81 % (42-75); Platelet Count 245 thou/uL (130-400); Platelet Morphology Comment Appears Adequate; RBC Distribution Width 14.1 % (11.5-14.5); RBC Morphology Normal; Red Blood Cell (RBC) Count 4.12 mill/uL (4.20-5.40)
[2020-09-09] MEDS: Bupropion 150 MG XL TAB PO SCH (08:34)
[2020-09-09] MEDS: Gabapentin 100 MG CAP PO SCH (08:34)
[2020-09-09] MEDS: guaiFENesin ER 600 MG TAB PO SCH ×2 (08:34→20:46)
[2020-09-09] MEDS: Spironolactone 25 MG TAB PO SCH (08:35)
[2020-09-09] MEDS: NIFEdipine XL 30 MG TAB PO SCH (08:36)
[2020-09-09] MEDS: Clopidogrel Bisulfate 75 MG TAB PO SCH (08:36)
[2020-09-09] MEDS: Aripiprazole 10 MG TAB PO SCH (08:36)
[2020-09-09] MEDS: Carvedilol 25 MG TAB PO SCH ×2 (08:38→20:46)
[2020-09-09] MEDS: Aspirin 81 mg Enteric Coated Tablet PO SCH (08:38)
[2020-09-09] MEDS: hydrOXYzine 25 MG TAB PO SCH ×2 (08:39→20:47)
[2020-09-09] MEDS: Mometasone/Formoterol 200/5 60 PUFF INH SCH ×2 (08:41→20:50)
[2020-09-09 14:45] VITALS: BMI 32.5
[2020-09-09] MEDS: cefTRIAXone\\ROCEPHIN 1 GM in Sodium Chloride 0.9% 100 ML IVPB SCH (17:32)
[2020-09-09] MEDS ORDERED: cloNIDine 0.1 MG TAB PO SCH (19:00)
[2020-09-09] MEDS: Amitriptyline HCl 25 MG TAB PO SCH (20:46)
[2020-09-09] MEDS: Atorvastatin Calcium 40 MG TAB PO SCH (20:46)
[2020-09-10] MEDS: methylPREDNISolone Sod Succ/PF 125 MG/2 ML VIAL IVP SCH (02:15)
[2020-09-10] MEDS: Ipratropium Bromide 2.5 ml Neb NEB SCH (05:23)
[2020-09-10] MEDS: hydrALAZINE 25 MG TAB PO SCH (05:24)
[2020-09-10] MEDS: cloNIDine 0.1 MG TAB PO PRN (05:29)
[2020-09-10] MEDS: NIFEdipine XL 30 MG TAB PO SCH (07:39)
[2020-09-10] MEDS: guaiFENesin ER 600 MG TAB PO SCH (07:40)
[2020-09-10] MEDS: hydrOXYzine 25 MG TAB PO SCH (07:40)
[2020-09-10] MEDS: Spironolactone 25 MG TAB PO SCH (07:41)
[2020-09-10] MEDS: Gabapentin 100 MG CAP PO SCH (07:41)
[2020-09-10] MEDS: Carvedilol 25 MG TAB PO SCH (07:41)
[2020-09-10] MEDS: Aripiprazole 10 MG TAB PO SCH (07:42)
[2020-09-10] MEDS: Mometasone/Formoterol 200/5 60 PUFF INH SCH (07:42)
[2020-09-10] MEDS: Aspirin 81 mg Enteric Coated Tablet PO SCH (07:42)
[2020-09-10] MEDS: Bupropion 150 MG XL TAB PO SCH (07:42)
[2020-09-10] MEDS: Clopidogrel Bisulfate 75 MG TAB PO SCH (07:42)
[2020-09-10 07:43] VITALS: BP 189/83
[2020-09-10 07:51] VITALS: TEMP 97.1
[2020-09-14] MEDS ORDERED: cloNIDine 0.1mg/24 Hour PATCH TD SCH (09:00)
== END 2020-09-10 08:17 | disposition home or self-care (01) | DRG 190 ==
LOC: BURERS 15:41 → BURMED 18:30
PROVIDERS: ADMIT Family Medicine; ATTEND Family Medicine
DX: J44.1 Chronic obstructive pulmonary disease with (acute) exacerbation (principal); I50.33 Acute on chronic diastolic (congestive) heart failure; N39.0 Urinary tract infection, site not specified; I11.0 Hypertensive heart disease with heart failure; E78.5 Hyperlipidemia, unspecified; F31.9 Bipolar disorder, unspecified; M79.7 Fibromyalgia; I16.0 Hypertensive urgency; Z20.822 Contact with and (suspected) exposure to COVID-19; F17.200 Nicotine dependence, unspecified, uncomplicated; Z90.49 Acquired absence of other specified parts of digestive tract; Z98.51 Tubal ligation status; Z88.8 Allergy status to other drugs, medicaments and biological substances; Z91.041 Radiographic dye allergy status; Z79.82 Long term (current) use of aspirin; Z79.02 Long term (current) use of antithrombotics/antiplatelets
CPT/HCPCS: 0241U; 36415; 71045; 80053; 81003; 81015; 83880; 84484; 85025; 86769; 87040; 87086; 93005; 94640; 96374; 96375; J0696; J1940; J2930; J3490; J7611; J7620

== ENCOUNTER 2021-01-08 21:31 | Emergency (ER) | payer OTHER ==
[2021-01-09 16:53] LABS: SARS-CoV-2 PCR by NAA Not Detected (NotDetected)
== END 2021-01-08 22:50 | disposition home or self-care (01) ==
LOC: BURERS 21:31
DX: R11.2 Nausea with vomiting, unspecified (principal); Z20.822 Contact with and (suspected) exposure to COVID-19; E78.5 Hyperlipidemia, unspecified; J44.9 Chronic obstructive pulmonary disease, unspecified; I11.0 Hypertensive heart disease with heart failure; I50.9 Heart failure, unspecified; I25.2 Old myocardial infarction; F17.210 Nicotine dependence, cigarettes, uncomplicated
CPT/HCPCS: 99283; U0003; U0005

== ENCOUNTER 2021-03-01 11:25 | Emergency (ER) | payer OTHER ==
[2021-03-01 12:39] LABS: #Monocytes 0.3 thou/uL (0.11-0.59); #Neutrophils 6.6 thou/uL (1.40-6.50); %Basophils 0.1 % (0.0-1.0); %Monocytes 4.2 % (0.0-10.0); %Neutrophils 83.6 % (42.0-75.0); Hemoglobin 12.7 g/dL (12.0-16.0); Mean Corpuscular HGB CONC 31.8 g/dL (32.0-36.0); Mean Corpuscular Hemoglobin 29.8 pg (27.0-31.0); Mean Corpuscular Volume 93.6 fL (78.0-98.0); Mean Platelet Volume 6.3 fL (7.4-10.4); Platelet Count 280 thou/uL (130-400); RBC Distribution Width 14.4 % (11.5-14.5); Red Blood Cell (RBC) Count 4.25 mill/uL (4.20-5.40); White Blood Cell (WBC) Count 7.9 thou/uL (4.8-10.8)
[2021-03-01 12:56] LABS: ALT (SGPT) 10 U/L (8-55); AST (SGOT) 10 U/L (5-34); Albumin 3.9 g/dL (3.4-4.8); Alkaline Phosphatase 68 U/L (40-110); Anion Gap 16 mmol/L (10-20); BUN (Urea Nitrogen) 21 mg/dL (9.8-20.1); Bilirubin, Total 0.2 mg/dL (0.2-1.2); Calc. Creatinine Clearance 0 mL/min (70-130); Calcium 10.8 mg/dL (7.8-10.44); Carbon Dioxide 18 mmol/L (23-31); Globulin 3.5 g/dL (2.4-3.5); Glucose 121 mg/dL (80-115); Protein, Total 7.4 g/dL (5.8-8.1)
[2021-03-01] MEDS ORDERED: methylPREDNISolone Sod Succ/PF 125 MG/2 ML VIAL ONE (13:05)
[2021-03-01 13:12] LABS: Chloride 109 mmol/L (98-107); Potassium 4.9 mmol/L (3.5-5.1); Sodium 138 mmol/L (136-145)
[2021-03-01] MEDS ORDERED: Nitroglycerin 0.4 MG TAB 1 EACH ONE (13:53)
[2021-03-01] MEDS ORDERED: Doxycycline 100 MG CAP ONE (15:20)
[2021-03-01] MEDS ORDERED: cloNIDine 0.1 MG TAB ONE (15:20)
[2021-03-01 15:49] LABS: Bilirubin Negative (Negative); Blood, Urine Trace (Negative); Clarity Clear (Clear); Glucose, Urine (Dipstick) Negative (Negative); Ketone, Urine Negative (Negative); Leukocyte Negative (Negative); Nitrite Negative (Negative); Protein, Urine (Dipstick) Negative (Neg-Trace); Urobilinogen 0.2 mg/dL (Less than 2); pH, Urine 5.5 (5.0-9.0)
[2021-03-01 16:01] LABS: Bacteria/HPF 1+ HPF (None Seen); RBC/HPF 0-3 HPF (0-3); Squamous Epithelial 0-3 HPF (0-3); WBC/HPF 0-3 HPF (0-3)
[2021-03-01] MEDS ORDERED: Amlodipine 5 MG TAB ONE (16:12)
[2021-03-01] MEDS ORDERED: Benzonatate 100 MG CAP ONE ×2 (16:13→16:14)
[2021-03-01] MEDS ORDERED: Iopamidol 370 76% 100 ML VIAL ONE (17:08)
[2021-03-01 18:21] LABS: SARS-CoV-2 NAA Rapid Test Not Detected (NotDetected)
[2021-03-01] MEDS ORDERED: Ibuprofen 200 MG TAB ONE (21:00)
== END 2021-03-01 21:39 | disposition short-term general hospital (02) ==
LOC: BURERS 11:25
DX: J44.1 Chronic obstructive pulmonary disease with (acute) exacerbation (principal); I11.0 Hypertensive heart disease with heart failure; I50.9 Heart failure, unspecified; E78.5 Hyperlipidemia, unspecified; M79.7 Fibromyalgia; F17.210 Nicotine dependence, cigarettes, uncomplicated; I48.91 Unspecified atrial fibrillation; I25.2 Old myocardial infarction; Z20.822 Contact with and (suspected) exposure to COVID-19; Z86.73 Personal history of transient ischemic attack (TIA), and cerebral infarction without residual deficits; Z86.79 Personal history of other diseases of the circulatory system; Z85.118 Personal history of other malignant neoplasm of bronchus and lung
CPT/HCPCS: 36415; 71045; 71275; 80053; 81003; 81015; 83605; 83880; 84484; 85025; 93005; 96374; J2930; J7620; Q9967; U0002

== ENCOUNTER 2021-06-26 10:54 | Emergency (ER) | payer OTHER ==
[2021-06-26] MEDS ORDERED: NIFEdipine XL 30 MG TAB PO SCH (12:30)
[2021-06-26] MEDS ORDERED: Carvedilol 25 MG TAB PO SCH (12:30)
[2021-06-26] MEDS ORDERED: hydrALAZINE 25 MG TAB PO SCH (12:30)
[2021-06-26 13:08] LABS: #Basophils 0.1 thou/uL (0.0-0.2); #Eosinphils 0.1 thou/uL (0.0-0.7); #Lymphocytes 1.7 thou/uL (1.20-3.40); #Monocytes 0.3 thou/uL (0.11-0.59); #Neutrophils 2.3 thou/uL (1.40-6.50); %Basophils 1.5 % (0.0-1.0); %Eosinophils 1.6 % (0.0-10.0); %Lymphocytes 37.9 % (21.0-51.0); %Monocytes 6.9 % (0.0-10.0); %Neutrophils 52.1 % (42.0-75.0); Hemoglobin 12.4 g/dL (12.0-16.0); Mean Corpuscular HGB CONC 31.8 g/dL (32.0-36.0); Mean Corpuscular Hemoglobin 28.4 pg (27.0-31.0); Mean Corpuscular Volume 89.3 fL (78.0-98.0); Mean Platelet Volume 6.4 fL (7.4-10.4); Platelet Count 325 thou/uL (130-400); RBC Distribution Width 15.2 % (11.5-14.5); Red Blood Cell (RBC) Count 4.38 mill/uL (4.20-5.40); White Blood Cell (WBC) Count 4.4 thou/uL (4.8-10.8)
[2021-06-26 13:26] LABS: ALT (SGPT) 13 U/L (8-55); AST (SGOT) 14 U/L (5-34); Albumin 3.7 g/dL (3.4-4.8); Alkaline Phosphatase 86 U/L (40-110); Anion Gap 16 mmol/L (10-20); BUN (Urea Nitrogen) 11 mg/dL (9.8-20.1); Bilirubin, Total 0.2 mg/dL (0.2-1.2); Calc. Creatinine Clearance 0 mL/min (70-130); Calcium 10.6 mg/dL (7.8-10.44); Carbon Dioxide 28 mmol/L (23-31); Chloride 104 mmol/L (98-107); Globulin 2.9 g/dL (2.4-3.5); Glucose 102 mg/dL (80-115); Potassium 3.7 mmol/L (3.5-5.1); Protein, Total 6.6 g/dL (5.8-8.1); Sodium 144 mmol/L (136-145)
[2021-06-26 23:25] LABS: SARS-CoV-2 PCR by NAA DETECTED (NotDetected)
== END 2021-06-26 16:15 | disposition left against medical advice (07) ==
LOC: BURERS 10:54
DX: U07.1 COVID-19 (principal); I11.0 Hypertensive heart disease with heart failure; I50.9 Heart failure, unspecified; I25.2 Old myocardial infarction; Z86.73 Personal history of transient ischemic attack (TIA), and cerebral infarction without residual deficits; I25.10 Atherosclerotic heart disease of native coronary artery without angina pectoris; J44.9 Chronic obstructive pulmonary disease, unspecified; F17.210 Nicotine dependence, cigarettes, uncomplicated
CPT/HCPCS: 36415; 71045; 80053; 83880; 84484; 85025; 87804; 93005; U0003; U0005

== ENCOUNTER 2021-07-25 17:57 | Emergency (ER) | payer OTHER ==
[2021-07-25] MEDS ORDERED: methylPREDNISolone Sod Succ/PF 125 MG/2 ML VIAL ONE (18:25)
[2021-07-25 18:34] LABS: #Basophils 0.1 thou/uL (0.0-0.2); #Lymphocytes 0.8 thou/uL (1.20-3.40); #Monocytes 0.6 thou/uL (0.11-0.59); #Neutrophils 5.4 thou/uL (1.40-6.50); %Eosinophils 0.1 % (0.0-10.0); %Lymphocytes 11.8 % (21.0-51.0); %Monocytes 8.2 % (0.0-10.0); %Neutrophils 78.9 % (42.0-75.0); Hemoglobin 11.6 g/dL (12.0-16.0); Mean Corpuscular HGB CONC 31.8 g/dL (32.0-36.0); Mean Corpuscular Hemoglobin 28.2 pg (27.0-31.0); Mean Corpuscular Volume 88.7 fL (78.0-98.0); Mean Platelet Volume 6.6 fL (7.4-10.4); Platelet Count 297 thou/uL (130-400); RBC Distribution Width 16.6 % (11.5-14.5); White Blood Cell (WBC) Count 6.8 thou/uL (4.8-10.8)
[2021-07-25] MEDS ORDERED: Albuterol Sulfate 1.25 MG/3 ML NEB ONE (18:46)
[2021-07-25 18:51] LABS: ALT (SGPT) 17 U/L (8-55); AST (SGOT) 23 U/L (5-34); Albumin 3.9 g/dL (3.4-4.8); Alkaline Phosphatase 76 U/L (40-110); Anion Gap 16 mmol/L (10-20); BUN (Urea Nitrogen) 31 mg/dL (9.8-20.1); Bilirubin, Total 0.3 mg/dL (0.2-1.2); Calc. Creatinine Clearance 0 mL/min (70-130); Calcium 10.4 mg/dL (7.8-10.44); Carbon Dioxide 25 mmol/L (23-31); Chloride 108 mmol/L (98-107); Globulin 2.5 g/dL (2.4-3.5); Glucose 98 mg/dL (80-115); Potassium 5.7 mmol/L (3.5-5.1); Protein, Total 6.4 g/dL (5.8-8.1); Sodium 143 mmol/L (136-145)
[2021-07-25 19:09] LABS: CKMB 2.4 ng/mL (0-6.6)
[2021-07-25] MEDS ORDERED: Aspirin Chewable 81 MG TAB ONE (19:24)
[2021-07-25] MEDS ORDERED: Furosemide 40 MG/4 ML VIAL ONE (19:24)
[2021-07-25] MEDS ORDERED: Nitroglycerin 2% Ointment 1 INCH/1 GM Packet ONE (20:37)
[2021-07-25] MEDS ORDERED: Albuterol Sulfate 2.5 mg/0.5 ml Neb ONE ×2 (20:47→23:01)
[2021-07-25 21:11] LABS: SARS-CoV-2 NAA Rapid Test Not Detected (NotDetected)
[2021-07-25] MEDS ORDERED: Albuterol 200 PUFF (6.7GM INHALER) ONE (23:05)
[2021-07-25] MEDS ORDERED: Albuterol Sulfate 2.5 mg/3 ml Neb ONE (23:05)
== END 2021-07-25 23:53 | disposition short-term general hospital (02) ==
LOC: BURERS 17:57
DX: I13.0 Hypertensive heart and chronic kidney disease with heart failure and stage 1 through stage 4 chronic kidney disease, or unspecified chronic kidney disease (principal); F17.210 Nicotine dependence, cigarettes, uncomplicated; N18.9 Chronic kidney disease, unspecified; I50.9 Heart failure, unspecified; J44.1 Chronic obstructive pulmonary disease with (acute) exacerbation; E78.5 Hyperlipidemia, unspecified; I25.10 Atherosclerotic heart disease of native coronary artery without angina pectoris; I48.91 Unspecified atrial fibrillation; I25.2 Old myocardial infarction; M79.7 Fibromyalgia; Z20.822 Contact with and (suspected) exposure to COVID-19; Z86.73 Personal history of transient ischemic attack (TIA), and cerebral infarction without residual deficits; Z85.118 Personal history of other malignant neoplasm of bronchus and lung
CPT/HCPCS: 71045; 80053; 82553; 83880; 84484; 85025; 93005; 94640; 94760; 96374; 96375; J1940; J2930; J7611; J7620; U0002

== ENCOUNTER 2021-10-26 16:00 | Emergency (ER) | payer OTHER ==
[2021-10-26] MEDS ORDERED: HYDROcodone/Acetaminophen 5/325 mg Tablet ONE (16:48)
== END 2021-10-26 17:06 | disposition home or self-care (01) ==
LOC: BURERS 16:00
DX: S93.402A Sprain of unspecified ligament of left ankle, initial encounter (principal); S90.32XA Contusion of left foot, initial encounter; S90.31XA Contusion of right foot, initial encounter; I13.0 Hypertensive heart and chronic kidney disease with heart failure and stage 1 through stage 4 chronic kidney disease, or unspecified chronic kidney disease; I50.9 Heart failure, unspecified; N18.30 Chronic kidney disease, stage 3 unspecified; I25.10 Atherosclerotic heart disease of native coronary artery without angina pectoris; I25.2 Old myocardial infarction; I48.91 Unspecified atrial fibrillation; E78.5 Hyperlipidemia, unspecified; J44.9 Chronic obstructive pulmonary disease, unspecified; F17.210 Nicotine dependence, cigarettes, uncomplicated; Z86.73 Personal history of transient ischemic attack (TIA), and cerebral infarction without residual deficits; W22.8XXA Striking against or struck by other objects, initial encounter

== ENCOUNTER 2022-09-15 13:45 | Emergency (ER) | payer OTHER ==
[2022-09-15] MEDS ORDERED: traMADol HCl 50 MG TAB ONE (14:30)
[2022-09-15] MEDS ORDERED: Acetaminophen 325 MG TAB ONE (14:30)
[2022-09-15] MEDS ORDERED: cloNIDine 0.1 MG TAB ONE (15:46)
== END 2022-09-15 15:51 | disposition home or self-care (01) ==
LOC: BURERS 13:45
DX: S30.0XXA Contusion of lower back and pelvis, initial encounter (principal); J44.9 Chronic obstructive pulmonary disease, unspecified; I25.10 Atherosclerotic heart disease of native coronary artery without angina pectoris; I13.0 Hypertensive heart and chronic kidney disease with heart failure and stage 1 through stage 4 chronic kidney disease, or unspecified chronic kidney disease; N18.30 Chronic kidney disease, stage 3 unspecified; I50.9 Heart failure, unspecified; E78.5 Hyperlipidemia, unspecified; F17.210 Nicotine dependence, cigarettes, uncomplicated; I25.2 Old myocardial infarction; Z86.73 Personal history of transient ischemic attack (TIA), and cerebral infarction without residual deficits; W18.30XA Fall on same level, unspecified, initial encounter
CPT/HCPCS: 72125; 72128; 72131; 72192

== ENCOUNTER 2023-08-07 20:17 | Emergency (ER) | payer OTHER, MEDICAID ==
[~2023-08-07 20:17] MED LIST: Etomidate 40 MG (20 mL) VIAL ONE; Iopamidol 370 76% 100 ML VIAL ONE; SUCCINYLCHOLINE/SOD CL,ISO/PF 200 MG/10 ML SYRINGE FS ONE
[2023-08-07] MEDS ORDERED: Propofol 1,000 MG/100 ML VIAL IV ONE (20:29)
[2023-08-07] MEDS ORDERED: Nitroglycerin 50 MG/250 ML BOT 250 ML ONE (20:55)
[2023-08-07] MEDS ORDERED: Furosemide 100 MG (10 mL) VIAL ONE (21:02)
[2023-08-07] MEDS ORDERED: Lorazepam 2 MG/ML VIAL ONE (21:12)
[2023-08-07 21:15] LABS: ALT (SGPT) 28 U/L (8-55); AST (SGOT) 42 U/L (5-34); Albumin 3.8 g/dL (3.4-4.8); Alkaline Phosphatase 85 U/L (40-110); Anion Gap 16 mmol/L (10-20); BUN (Urea Nitrogen) 26 mg/dL (9.8-20.1); Bilirubin, Total 0.2 mg/dL (0.2-1.2); Calc. Creatinine Clearance 0 mL/min (70-130); Calcium 9.2 mg/dL (7.8-10.44); Carbon Dioxide 15 mmol/L (23-31); Chloride 111 mmol/L (98-107); Estimated GFR 27; Globulin 3.2 g/dL (2.4-3.5); Glucose 266 mg/dL (80-115); Potassium 4.9 mmol/L (3.5-5.1); Sodium 137 mmol/L (136-145)
[2023-08-07 23:10] LABS: Hematocrit 39.3 % (36.0-47.0); Hemoglobin 12.6 g/dL (12.0-16.0); Mean Corpuscular Hemoglobin 27.1 pg (27.0-31.0); Mean Corpuscular Volume 84.7 fl (78.0-98.0); Platelet Count 262 10x3/uL (130-400); RBC Distribution Width 19.3 % (11.5-14.5); Red Blood Cell (RBC) Count 5.35 mill/uL (4.20-5.40); White Blood Cell (WBC) Count 10.5 10x3/uL (4.8-10.8)
[2023-08-07 23:11] LABS: #Basophils 0.2 thou/uL (0.0-0.2); #Eosinphils 0.8 thou/uL (0.0-0.7); #Lymphocytes 3.8 thou/uL (1.20-3.40); #Monocytes 0.4 thou/uL (0.11-0.59); #Neutrophils 5.4 thou/uL (1.40-6.50); %Basophils 1.6 % (0.0-1.0); %Eosinophils 7.7 % (0.0-10.0); %Lymphocytes 35.7 % (21.0-51.0); %Neutrophils 50.9 % (42.0-75.0); Manual Diff?? NO; Mean Platelet Volume 6.6 fL (7.4-10.4)
== END 2023-08-07 22:03 | disposition short-term general hospital (02) ==
LOC: BURERS 20:17 → MERGE 20:17 → BURERS 22:03
DX: J44.1 Chronic obstructive pulmonary disease with (acute) exacerbation (principal); J96.90 Respiratory failure, unspecified, unspecified whether with hypoxia or hypercapnia; I13.0 Hypertensive heart and chronic kidney disease with heart failure and stage 1 through stage 4 chronic kidney disease, or unspecified chronic kidney disease; N18.30 Chronic kidney disease, stage 3 unspecified; I50.9 Heart failure, unspecified; I25.10 Atherosclerotic heart disease of native coronary artery without angina pectoris; I48.91 Unspecified atrial fibrillation; E78.5 Hyperlipidemia, unspecified; I25.2 Old myocardial infarction; F17.210 Nicotine dependence, cigarettes, uncomplicated; Z86.73 Personal history of transient ischemic attack (TIA), and cerebral infarction without residual deficits; Z79.899 Other long term (current) drug therapy
CPT/HCPCS: 31500; 43753; 51702; 71045; 80053; 83880; 85025; 96365; 96375; 96376; J1940; J2060; J2704; Q9967